=== PATIENT | female | born 1975 | race Caucasian/White ===

== ENCOUNTER 2016-12-04 08:12 | Outpatient (CLI) | payer OTHER | END 2016-12-04 08:13 | disposition home or self-care (01) | DX: Z12.31 Encounter for screening mammogram for malignant neoplasm of breast (principal) ==

== ENCOUNTER 2017-12-30 11:22 | Outpatient (CLI) | payer OTHER ==
--- NOTE | 2017-12-30 18:09 | Mammography Report ---
DIGITAL SCREENING MAMMOGRAM: 12/30/2017 HISTORY: Asymptomatic. Routine screening. TECHNIQUE: Bilateral digital CC and MLO projections are performed. COMPARISON: 12/04/2016 and 10/26/2015. FINDINGS: There are scattered fibroglandular densities. There is no dominant mass, architectural distortion, or skin thickening. Numerous bilateral axillary lymph nodes are present. Calcifications in the posterior left breast 7 o'clock position are likely in the skin. No definite interval change has occurred. IMPRESSION: NEGATIVE. BIRADS category: 1, negative. Suggest return to routine screening in 12 months. STANDARD QUALIFYING STATEMENTS 1. This examination was reviewed with the aid of Computed-Aided Detection (CAD) . 2. A negative or benign imaging report should not delay biopsy if clinically suspicious findings are present. Consider surgical consultation if warranted. More than 5 % of cancers are not identified by imaging. 3. Dense breasts may obscure an underlying neoplasm. TD: 12/30/2017 18:09 ZENA
== END 2017-12-30 11:23 | disposition home or self-care (01) ==
LOC: DI 11:22
PROVIDERS: ATTEND Physician Assistant Medical
DX: Z12.31 Encounter for screening mammogram for malignant neoplasm of breast (principal)
CPT/HCPCS: 77067

== ENCOUNTER 2018-05-08 08:45 | Outpatient (CLI) | payer OTHER ==
[2018-05-08 14:58] LABS: HB2 TOTAL 12.3 g/dL; HEMOGLOBIN A1C 0.58 g/dL; HEMOGLOBIN A1C % 6.5 % (4.6-6.2)
== END 2018-05-08 08:46 | disposition home or self-care (01) ==
LOC: LAB.R 08:45
PROVIDERS: ATTEND Physician Assistant Medical
DX: Z79.899 Other long term (current) drug therapy (principal); E11.9 Type 2 diabetes mellitus without complications
CPT/HCPCS: 82947; 83036

== ENCOUNTER 2018-10-20 07:29 | Outpatient (CLI) | payer BC, OTHER ==
[2018-10-20 12:39] LABS: BASOPHILS # (AUTO) 0.2 10^3/uL (0.0-0.1); BASOPHILS % (AUTO) 2.1 %; EOSINOPHILS # (AUTO) 0.5 10^3/uL (0.0-0.7); HGB - HEMOGLOBIN 11.8 g/dL (12.0-16.0); LYMPHOCYTES # (AUTO) 1.9 10^3/uL (1.5-3.5); LYMPHOCYTES % (AUTO) 25.1 %; MEAN CORPUSCULAR HEMOGLOBIN 24.6 pg (27.0-31.0); MEAN CORPUSCULAR HGB CONC 31.9 g/dL (32.0-36.0); MEAN CORPUSCULAR VOLUME 77.1 fL (81.0-99.0); MEAN PLATELET VOLUME 8.8 fL (7.9-10.8); MONOCYTES # (AUTO) 0.7 10^3/uL (0.0-1.0); MONOCYTES % (AUTO) 8.7 %; NEUTROPHILS # (AUTO) 4.5 10^3/uL (1.5-6.6); NEUTROPHILS % (AUTO) 58.1 %; PLT - PLATELET COUNT 292 10^3/uL (130-450); RED CELL DISTRIBUTION WIDTH 17.2 % (12.0-15.0); WHITE BLOOD COUNT 7.7 x10^3/uL (4.8-10.8)
[2018-10-20 13:10] LABS: HB2 TOTAL 12.8 g/dL; HEMOGLOBIN A1C 0.56 g/dL; HEMOGLOBIN A1C % 6.2 % (4.6-6.2)
[2018-10-20 13:19] LABS: ALBUMIN 4.3 g/dL (3.2-5.5); ALBUMIN/GLOBULIN RATIO 1.4 (1.0-2.2); ALKALINE PHOSPHATASE 48 IU/L (42-121); ALT ALANINE AMINOTRANSFERASE 17 IU/L (10-60); AST ASPARTATE AMINOTRANSFERASE 25 IU/L (10-42); BILIRUBIN,TOTAL 0.7 mg/dL (0.2-1.0); BUN - BLOOD UREA NITROGEN 16 mg/dL (6-20); CALCIUM 9.4 mg/dL (8.5-10.3); CARBON DIOXIDE - CO2 25 mmol/L (21-32); CHLORIDE 104 mmol/L (101-111); CHOL/HDL RATIO 2.2 (<4.4); CHOLESTEROL 159 mg/dL; CREATININE 0.7 mg/dL (0.4-1.0); GFR - MDRD 91 (>89); GLUCOSE 84 mg/dL (70-100); HDL CHOLESTEROL 71 mg/dL; LDL CHOLESTEROL,CALCULATED 72 mg/dL; SODIUM 138 mmol/L (135-145); TOTAL PROTEIN 7.4 g/dL (6.7-8.2); VLDL CHOLESTEROL 16 mg/dL
== END 2018-10-20 23:59 | disposition home or self-care (01) ==
LOC: LAB.WCP 07:29
PROVIDERS: ATTEND Physician Assistant
DX: I10 Essential (primary) hypertension (principal); E78.5 Hyperlipidemia, unspecified; E11.9 Type 2 diabetes mellitus without complications
CPT/HCPCS: 36415; 80053; 80061; 83036; 83721; 84443; 85025

== ENCOUNTER 2018-11-30 15:00 | Outpatient (CLI) | payer BC | END 2018-11-30 23:59 | disposition home or self-care (01) | LOC: LAB.R 15:00 | PROVIDERS: ATTEND Physician Assistant Medical | DX: R31.9 Hematuria, unspecified (principal) | CPT/HCPCS: 87086 ==

== ENCOUNTER 2018-12-07 13:47 | Outpatient (CLI) | payer BC ==
--- NOTE | 2018-12-08 00:46 | XRAY Report ---
Reason: DYSPNEA ON EXERTION Procedure Date: 12/07/2018 Accession Number: [id number] / [id number] Procedure: WCP - Chest 2 View X-Ray CPT Code: 00490 FULL RESULT: EXAM: CHEST RADIOGRAPHY EXAM DATE: 12/07/2018 02:03 PM. CLINICAL HISTORY: DYSPNEA ON EXERTION. COMPARISON: None. TECHNIQUE: 2 views. FINDINGS: Lungs/Pleura: No focal opacities evident. No pleural effusion. No pneumothorax. Normal volumes. Mediastinum: Heart and mediastinal contours are unremarkable. Other: None. IMPRESSION: Normal 2-view chest radiography. RADIA
== END 2018-12-07 13:48 | disposition home or self-care (01) ==
LOC: DI.WCP 13:47
PROVIDERS: ATTEND Physician Assistant Medical
DX: R06.00 Dyspnea, unspecified (principal)
CPT/HCPCS: 71046

== ENCOUNTER 2018-12-07 16:39 | Outpatient (CLI) | payer BC ==
[2018-12-07] MEDS ORDERED: IOPAMIDOL-300 100 ML VIAL ONE (17:14)
[2018-12-07] MEDS ORDERED: IOVERSOL 320 50 ML VIAL ONE (17:14)
[2018-12-07] MEDS ORDERED: IOPAMIDOL-300 100 ML VIAL IVP ONE (18:19)
[2018-12-07] MEDS ORDERED: IOVERSOL 320 50 ML VIAL PO ONE (18:19)
--- NOTE | 2018-12-07 18:57 | CT Report ---
Reason: ABDOMINAL PAIN,ACUTE Procedure Date: 12/07/2018 Accession Number: [id number] / [id number] Procedure: CT - Abdomen/Pelvis W CPT Code: FULL RESULT: EXAM: CT ABDOMEN AND PELVIS EXAM DATE: 12/07/2018 06:15 PM. CLINICAL HISTORY: ABDOMINAL Pain, acute. COMPARISONS: ABDOMEN W/WO 05/09/2015 1:54 PM. TECHNIQUE: Routine helical CT imaging was performed through the abdomen and pelvis. IV contrast: ISOVUE 300 100mL. Enteric contrast: Positive. Reconstructions: Coronal and sagittal. In accordance with CT protocol optimization, one or more of the following dose reduction techniques were utilized for this exam: automated exposure control, adjustment of mA and/or KV based on patient size, or use of iterative reconstructive technique. FINDINGS: Lung Bases: Unremarkable. Liver: Normal. No masses. Gallbladder/Bile Ducts: There is cholelithiasis. Spleen: Normal. Pancreas: Normal. Adrenal Glands: Normal. Kidneys: There is left renal scarring. No acute renal abnormalities are seen. Peritoneal Cavity/Bowel: Normal. No free fluid, free air or adenopathy. No masses or acute inflammatory process. The appendix is not seen. Pelvic Organs: There is suggestion of inferior positioning of the rectum and lower uterine segment. No significant adnexal abnormalities are seen. The urinary bladder is unremarkable. Vasculature: No aneurysms or other significant abnormality. Bones: No significant abnormality. Other: There is a small fat-containing periumbilical hernia without evidence of associated inflammation. IMPRESSION: 1. No acute solid or hollow viscus organ abnormalities are seen. No evidence of bowel obstruction or mesenteric inflammation. 2. There is cholelithiasis. No evidence of cholecystitis or bile duct dilatation. 3. Questionable relative caudal positioning of the lower uterine segment which could be seen with pelvic prolapse. Clinical correlation recommended. 4. There is a small fat-containing periumbilical hernia without evidence of associated inflammation. RADIA The call report notification system was initiated by Dr. Anoop Yeh at 06:55 PM on 12/07/2018.
== END 2018-12-07 16:40 | disposition home or self-care (01) ==
LOC: DI 16:39
PROVIDERS: ATTEND Physician Assistant
DX: K80.20 Calculus of gallbladder without cholecystitis without obstruction (principal); K42.9 Umbilical hernia without obstruction or gangrene; R06.00 Dyspnea, unspecified; R68.89 Other general symptoms and signs; R10.9 Unspecified abdominal pain
CPT/HCPCS: 36415; 71046; 74177; 80053; 83540; 83690; 84466; 85025; Q9967

== ENCOUNTER 2018-12-07 16:49 | Outpatient (CLI) | payer BC ==
[2018-12-07 17:00] LABS: BASOPHILS # (AUTO) 0.2 10^3/uL (0.0-0.1); BASOPHILS % (AUTO) 2.3 %; EOSINOPHILS # (AUTO) 0.3 10^3/uL (0.0-0.7); EOSINOPHILS % (AUTO) 3.2 %; HGB - HEMOGLOBIN 11.7 g/dL (12.0-16.0); LYMPHOCYTES # (AUTO) 2.8 10^3/uL (1.5-3.5); LYMPHOCYTES % (AUTO) 26.7 %; MEAN CORPUSCULAR HEMOGLOBIN 24.3 pg (27.0-31.0); MEAN CORPUSCULAR HGB CONC 31.4 g/dL (32.0-36.0); MEAN CORPUSCULAR VOLUME 77.3 fL (81.0-99.0); MEAN PLATELET VOLUME 7.6 fL (7.9-10.8); MONOCYTES # (AUTO) 0.9 10^3/uL (0.0-1.0); MONOCYTES % (AUTO) 8.5 %; NEUTROPHILS # (AUTO) 6.2 10^3/uL (1.5-6.6); NEUTROPHILS % (AUTO) 59.3 %; PLT - PLATELET COUNT 316 10^3/uL (130-450); RED CELL DISTRIBUTION WIDTH 18.1 % (12.0-15.0); WHITE BLOOD COUNT 10.4 x10^3/uL (4.8-10.8)
[2018-12-07 17:29] LABS: ALBUMIN 4.4 g/dL (3.2-5.5); ALBUMIN/GLOBULIN RATIO 1.3 (1.0-2.2); BILIRUBIN,TOTAL 0.5 mg/dL (0.2-1.0); CALCIUM 9.5 mg/dL (8.5-10.3); CREATININE 0.7 mg/dL (0.4-1.0); TOTAL PROTEIN 7.8 g/dL (6.7-8.2)
[2018-12-08 08:24] LABS: % IRON SATURATION 3 % (20-50); IRON 15 ug/dL (28-170); TOTAL IRON BINDING CAPACITY 434 ug/dL (250-450); TRANSFERRIN 310 mg/dL (192-382)
== END 2018-12-07 16:50 | disposition home or self-care (01) ==
LOC: LAB 16:49
PROVIDERS: ATTEND Physician Assistant
DX: R10.9 Unspecified abdominal pain (principal); R68.89 Other general symptoms and signs
CPT/HCPCS: 36415; 80053; 83540; 83690; 84466; 85025

== ENCOUNTER 2019-02-18 11:27 | Emergency (ER) | payer BC ==
--- NOTE | 2019-02-18 12:04 | ED Physician Documentation ---
History of Present Illness - Stated complaint Stated Complaint: GLF/BACK - Chief complaint Chief Complaint: General - History obtained from History obtained from: Patient - History of Present Illness Timing: Other (4 days ago she was horse playing with her son and her legs came out from under her and she landed on her low back and has continued moderate pain there. On the way here pain radiated down into the right thigh but that is not persistent. There is no weakness, numbness, tingling, saddle anesthesia, fever, or incontinence. No history of back problems. No other injuries. 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 HEENT: Tonsil/Adenoidectomy - Present Medications Home Medications: Ambulatory Orders Medication Instructions Recorded Confirmed Lisinopril 20 mg PO DAILY 01/29/16 12/04/16 metFORMIN [Glucophage] 500 mg PO BIDWM 01/29/16 12/04/16 Acetaminophen [Tylenol] 325 mg PO QPM PRN 12/04/16 12/04/16 Bacillus Coagulans [Probiotic] 1 each PO Q2D 12/04/16 12/04/16 Citrucel 1 tab PO DAILY 12/04/16 12/04/16 Dicyclomine HCl 20 mg PO DAILY 12/04/16 12/04/16 Docusate Sodium 100 mg PO DAILY 12/04/16 12/04/16 Duloxetine HCl [Cymbalta] 60 mg PO DAILY 12/04/16 12/04/16 Famotidine 20 mg PO DAILY 12/04/16 12/04/16 Glimepiride 3 mg PO DAILY 12/04/16 12/04/16 Loratadine [Allergy Relief] 10 mg PO DAILY 12/04/16 12/04/16 Multivitamin [Multivitamins] 1 each PO DAILY 12/04/16 12/04/16 Phenylephrine HCl [Sudafed PE] 10 mg PO DAILY 12/04/16 12/04/16 Turmeric/Turmeric Root Extract 500 mg PO DAILY 12/04/16 12/04/16 [Turmeric] Insulin NPH Human Isophane 26 unit SQ QPM 02/19/17 02/19/17 [Humulin N] Acetaminophen/Cod 300/30 [Tylenol 1 each PO Q4-6H PRN #15 tablet 02/18/19 #3] - Allergies Allergies/Adverse Reactions: Allergies Allergy/AdvReac Type Severity Reaction Status Date / Time No Known Drug Allergies Allergy Verified 02/18/19 11:34 - Social History Does the pt smoke?: No Smoking Status: Never smoker Does the pt drink ETOH?: No Does the pt have substance abuse?: No - Immunizations Immunizations are current?: Yes PD ED PE NORMAL - Vitals Vital signs reviewed: Yes - General General: Alert and oriented X 3, No acute distress - Abdomen Abdomen: Soft, Non tender - Back Back: Other (Mild tenderness to the low lumbar spine and upper sacrum. The patient has equal and normal Achilles and patellar reflexes bilaterally. Normal sensation in all areas of the legs. Patient denies saddle anesthesia. Normal strength in flexion-extension at the ankles, knees, and flexion of the hips.) - Derm Derm: Normal color, Warm and dry - Extremities Extremities: No edema, No calf tenderness / cord Results - Vitals Vitals: Vital Signs - 24 hr 02/18/19 11:28 Temperature 36.5 C Heart Rate 92 Respiratory 14 Rate Blood Pressure 160/101 H O2 Saturation 100 Oxygen O2 Source Room air - Rads (name of study) LS and Sacrum Xray Radiology: EMP read contemporaneously (Potential right L2 transverse process fracture without other acute abnormality, note she was reexamined Specifically there after the x-ray and has no tenderness to L2 or the right side of L2.) Departure - Departure Disposition: 01 Home, Self Care Clinical Impression: Back contusion Qualifiers: Encounter type: initial encounter Laterality: unspecified laterality Qualified Code(s): S20.229A - Contusion of unspecified back wall of thorax, initial encounter Condition: Good Record reviewed to determine appropriate education?: Yes Instructions: ED Low Back Pain Injury Prescriptions: Acetaminophen/Cod 300/30 [Tylenol #3] 1 each PO Q4-6H PRN #15 tablet PRN Reason: Pain Comments: Recheck with your doctor in a week if not improving, return for new or worsening symptoms. Do not drink or drive while taking narcotic pain medication. Note that many narcotic pain relievers also contain Tylenol/acetaminophen. Please ensure that your total dose of acetaminophen from all sources does not exceed 3 g (3000 mg) per day. You may get constipated while on this medication. Take a stool softener such as Colace twice a day while you are on it. Also add an otpj-kvu-aimbcbd laxative such as senna or MiraLAX on any day that you do not have a bowel movement. If you received a narcotic pain medication or sedative while in the emergency department, do not drive for the next 24 hours. Your blood pressure was elevated today on check into the emergency department. This does not mean that you have hypertension, it is a common phenomenon to come to the emergency department and have elevated blood pressure. I recommend that you see your primary care physician within the week to have it rechecked when you are feeling better.
--- NOTE | 2019-02-18 12:49 | XRAY Report ---
Reason: back inj Procedure Date: 02/18/2019 Accession Number: [id number] / [id number] Procedure: XR - Lumbar Spine 2 View CPT Code: FULL RESULT: EXAM: LUMBOSACRAL SPINE RADIOGRAPHY EXAM DATE: 02/18/2019 12:35 PM. CLINICAL HISTORY: Fall 5 days ago with low back pain and sacral pain. COMPARISONS: None. TECHNIQUE: 3 views. FINDINGS: Alignment: Normal. No spondylolisthesis or scoliosis. Bones: Five jih-jyq-gdqnsae lumbar vertebral bodies are present. There is well-corticated disruption of the right L2 transverse process, possibly congenital. Otherwise no fracture is detected. Disks: Normal. Disk heights are maintained. Facets: No degenerative changes. Sacroiliac Joints: Unremarkable. Soft Tissues: Normal. The visualized bowel gas pattern is normal. IMPRESSION: No definite acute fracture or listhesis is detected. Correlate cortical disruption of the right L2 transverse process to focal tenderness to exclude fracture. [facility]
--- NOTE | 2019-02-18 12:53 | XRAY Report ---
Reason: back inj Procedure Date: 02/18/2019 Accession Number: [id number] / [id number] Procedure: XR - Sacrum/Coccyx CPT Code: FULL RESULT: EXAM: SACRUM AND COCCYX RADIOGRAPHY EXAM DATE: 02/18/2019 12:35 PM. HISTORY: Back injury. COMPARISONS: None. TECHNIQUE: 2 views. FINDINGS: Evaluation of the coccyx on AP view is limited by bowel gas. Alignment: Alignment of the distal coccyx on lateral radiograph appears unusual, possible 3 mm subluxation of the distal coccygeal segment. Bones: No definite fracture is detected. Joints: Normal. The sacroiliac joints and visualized hips are within normal limits. Soft Tissues: Unremarkable. IMPRESSION: Limited visualization of the coccyx on the AP view, potential subluxation without visualized fracture of the distal most portion of the coccyx as described above. RADIA
[2019-02-18 13:25] VITALS: BP 148/94
== END 2019-02-18 13:24 | disposition home or self-care (01) ==
LOC: ED 11:27
DX: S30.0XXA Contusion of lower back and pelvis, initial encounter (principal); W18.39XA Other fall on same level, initial encounter; Y93.83 Activity, rough housing and horseplay; I10 Essential (primary) hypertension; E11.9 Type 2 diabetes mellitus without complications; Z79.4 Long term (current) use of insulin
CPT/HCPCS: 72100; 72220; 99283

== ENCOUNTER 2019-07-06 10:51 | Outpatient (CLI) | payer BC ==
--- NOTE | 2019-07-06 16:31 | Mammography Report ---
Reason: SCREENING MAMMO Procedure Date: 07/06/2019 Accession Number: [id number] / [id number] Procedure: [facility]AN - Screening Mammo w/Wilmer CPT Code: FULL RESULT: EXAM: Screening Mammo w/Wilmer DATE: 07/06/2019 11:47 AM CLINICAL HISTORY: Routine screening. No reported personal or family history of breast cancer. TECHNIQUE: (B) - Bilateral CC and MLO views were obtained. COMPARISON: 12/30/2017 through 10/26/2015 PARENCHYMAL PATTERN: (A) - The breasts demonstrate scattered fibroglandular densities bilaterally. FINDINGS: Bilateral breasts: There are no suspicious masses, calcifications, or areas of distortion. IMPRESSION: Negative examination. BI-RADS category 1. RECOMMENDATION: (ANNUAL) - Recommend routine annual screening mammography. BI-RADS CATEGORY: (1) - Negative. STANDARD QUALIFYING STATEMENTS: 1. This examination was not reviewed with the aid of Computer-Aided Detection (CAD). 2. A negative or benign imaging report should not preclude biopsy if clinically suspicious findings are present. 3. Dense breasts may obscure an underlying neoplasm. 4. This examination was reviewed with the aid of 3D breast imaging (tomosynthesis).
== END 2019-07-06 10:52 | disposition home or self-care (01) ==
LOC: DI 10:51
DX: Z12.31 Encounter for screening mammogram for malignant neoplasm of breast (principal)
CPT/HCPCS: 77063; 77067

== ENCOUNTER 2019-07-09 07:25 | Outpatient (CLI) | payer BC ==
[2019-07-09 13:09] LABS: HB2 TOTAL 13.5 g/dL; HEMOGLOBIN A1C 0.54 g/dL; HEMOGLOBIN A1C % 5.8 % (4.6-6.2)
== END 2019-07-09 07:26 | disposition home or self-care (01) ==
LOC: LAB.WCP 07:25
PROVIDERS: ATTEND Physician Assistant
DX: E11.9 Type 2 diabetes mellitus without complications (principal); I10 Essential (primary) hypertension; E78.5 Hyperlipidemia, unspecified; E66.3 Overweight; F32.9 Major depressive disorder, single episode, unspecified
CPT/HCPCS: 36415; 80053; 83036

== ENCOUNTER 2019-07-12 07:22 | Outpatient (CLI) | payer BC ==
[2019-07-12 13:18] LABS: ALBUMIN 4.2 g/dL (3.2-5.5); ALBUMIN/GLOBULIN RATIO 1.3 (1.0-2.2); BILIRUBIN,TOTAL 0.6 mg/dL (0.2-1.0); CALCIUM 9.5 mg/dL (8.5-10.3); CREATININE 0.8 mg/dL (0.4-1.0); TOTAL PROTEIN 7.4 g/dL (6.7-8.2)
== END 2019-07-15 23:59 | disposition home or self-care (01) ==
LOC: LAB.WCP 07:22
PROVIDERS: ATTEND Physician Assistant
DX: I10 Essential (primary) hypertension (principal); E11.9 Type 2 diabetes mellitus without complications; E78.5 Hyperlipidemia, unspecified; E66.3 Overweight; F32.9 Major depressive disorder, single episode, unspecified
CPT/HCPCS: 36415; 80053

== ENCOUNTER 2019-10-07 07:21 | Outpatient (CLI) | payer BC ==
[2019-10-07 12:47] LABS: HB2 TOTAL 12.9 g/dL; HEMOGLOBIN A1C 0.66 g/dL; HEMOGLOBIN A1C % 6.8 % (4.6-6.2)
[2019-10-07 12:51] LABS: CALCIUM 9.2 mg/dL (8.5-10.3); CREATININE 0.8 mg/dL (0.4-1.0)
== END 2019-10-07 23:59 | disposition home or self-care (01) ==
LOC: LAB.WCP 07:21
PROVIDERS: ATTEND Physician Assistant
DX: E11.9 Type 2 diabetes mellitus without complications (principal)
CPT/HCPCS: 36415; 80048; 83036

== ENCOUNTER 2020-07-31 08:00 | Outpatient (CLI) | payer BC ==
[2020-07-31 11:59] LABS: BASOPHILS # (AUTO) 0.1 10^3/uL (0.0-0.1); BASOPHILS % (AUTO) 1.8 %; EOSINOPHILS # (AUTO) 0.6 10^3/uL (0.0-0.7); EOSINOPHILS % (AUTO) 8.4 %; HGB - HEMOGLOBIN 12.7 g/dL (12.0-16.0); LYMPHOCYTES # (AUTO) 1.9 10^3/uL (1.5-3.5); LYMPHOCYTES % (AUTO) 29.1 %; MEAN CORPUSCULAR HEMOGLOBIN 28.3 pg (27.0-31.0); MEAN CORPUSCULAR HGB CONC 31.2 g/dL (32.0-36.0); MEAN CORPUSCULAR VOLUME 90.6 fL (81.0-99.0); MEAN PLATELET VOLUME 10.8 fL (7.9-10.8); MONOCYTES # (AUTO) 0.6 10^3/uL (0.0-1.0); MONOCYTES % (AUTO) 8.6 %; NEUTROPHILS # (AUTO) 3.4 10^3/uL (1.5-6.6); NEUTROPHILS % (AUTO) 51.8 %; PLT - PLATELET COUNT 284 10^3/uL (130-450); RED BLOOD COUNT 4.49 10^6/uL (4.20-5.40); WHITE BLOOD COUNT 6.5 x10^3/uL (4.8-10.8)
[2020-07-31 12:34] LABS: ALBUMIN 3.8 g/dL (3.2-5.5); ALBUMIN/GLOBULIN RATIO 1.4 (1.0-2.2); ALKALINE PHOSPHATASE 36 IU/L (42-121); ALT ALANINE AMINOTRANSFERASE 19 IU/L (10-60); AST ASPARTATE AMINOTRANSFERASE 19 IU/L (10-42); BILIRUBIN,TOTAL 0.5 mg/dL (0.2-1.0); BUN - BLOOD UREA NITROGEN 10 mg/dL (6-20); CARBON DIOXIDE - CO2 28 mmol/L (21-32); CHLORIDE 102 mmol/L (101-111); CHOL/HDL RATIO 2.4 (<4.4); CHOLESTEROL 139 mg/dL; CREATININE 0.7 mg/dL (0.4-1.0); GLUCOSE 95 mg/dL (70-100); HDL CHOLESTEROL 59 mg/dL; LDL CHOLESTEROL,CALCULATED 62 mg/dL; LDL/HDL RATIO 1.1 (<4.4); SODIUM 139 mmol/L (135-145); TOTAL PROTEIN 6.5 g/dL (6.7-8.2); VLDL CHOLESTEROL 18 mg/dL
[2020-07-31 12:56] LABS: HEMOGLOBIN A1c% 6.2 % (4.27-6.07)
== END 2020-07-31 23:59 | disposition home or self-care (01) ==
LOC: LAB.WCP 08:00
PROVIDERS: ATTEND Physician Assistant
DX: E11.9 Type 2 diabetes mellitus without complications (principal); E78.5 Hyperlipidemia, unspecified
CPT/HCPCS: 36415; 80053; 80061; 83036; 83721; 85025

== ENCOUNTER 2020-12-20 07:28 | Outpatient (CLI) | payer BC ==
[2020-12-20 12:37] LABS: CALCIUM 9.3 mg/dL (8.5-10.3); CREATININE 0.8 mg/dL (0.4-1.0); POTASSIUM 3.8 mmol/L (3.5-5.0)
[2020-12-20 12:51] LABS: ESTIMATED AVERAGE GLUCOSE 143 mg/dL (70-100); HEMOGLOBIN A1c% 6.6 % (4.27-6.07)
[2020-12-20 12:59] LABS: THYROID STIMULATING HORMONE 1.32 uIU/mL (0.34-5.60)
[2020-12-20 13:36] LABS: CREATININE,URINE 101.2 mg/dL; MICROALBUM/CREATININE RATIO,UR 10.9 ug/mg (<30.0); MICROALBUMIN,URINE 1.1 mg/dL (0-300.0)
== END 2020-12-20 23:59 | disposition home or self-care (01) ==
LOC: LAB.WCP 07:28
PROVIDERS: ATTEND Physician Assistant Medical
DX: E11.9 Type 2 diabetes mellitus without complications (principal)
CPT/HCPCS: 36415; 80048; 82043; 82570; 83036; 84443

== ENCOUNTER 2021-01-29 12:44 | Outpatient (CLI) | payer BC ==
--- NOTE | 2021-01-30 13:18 | Mammography Report ---
BILATERAL DIGITAL SCREENING MAMMOGRAM 3D/2D: 01/29/2021 CLINICAL: Routine screening. Comparison is made to exams dated: 07/06/2019 mammogram, 12/30/2017 mammogram, 12/04/2016 mammogram, and 10/26/2015 mammogram - [facility]. The tissue of both breasts is heterogeneously de nse. This may lower the sensitivity of mammography. No significant masses, calcifications, or other findings are seen in either breast. There has been no significant interval change. IMPRESSION: NEGATIVE There is no mammographic evidence of malignancy. A 1 year screening mammogram is recommended. This exam was interpreted at Station ID: [id number]. NOTE: For mammograms, a report in lay terms will be sent to the patient. Approximately 15% of breast malignancies will not be visualized mammographically. In the management of a palpable breast mass, a negative mammogram must not discourage biopsy of a clinically suspicious lesion. Electronically Signed By: Chris Cartagena M.D., jr/flor:01/29/2021 13:24:51 ACR BI-RADS Category 1: Negative 3341F PARENCHYMAL PATTERN: (D) - The breast(s) demonstrate(s) heterogeneously dense fibroglandular parhaoy ma. BI-RADS CATEGORY: (1) - 1 RECOMMENDATION: (ANNUAL) - Recommend routine annual screening mammography. [id number] 1 year screening LATERALITY: (B)
== END 2021-01-29 12:45 | disposition home or self-care (01) ==
LOC: DI.N 12:44
DX: Z12.31 Encounter for screening mammogram for malignant neoplasm of breast (principal)

== ENCOUNTER 2021-03-19 08:00 | Outpatient (CLI) | payer BC ==
[2021-03-19 11:51] LABS: BASOPHILS # (AUTO) 0.2 10^3/uL (0.0-0.1); BASOPHILS % (AUTO) 1.7 %; EOSINOPHILS # (AUTO) 0.6 10^3/uL (0.0-0.7); EOSINOPHILS % (AUTO) 7.2 %; HCT - HEMATOCRIT 39.4 % (37.0-47.0); HGB - HEMOGLOBIN 12.1 g/dL (12.0-16.0); LYMPHOCYTES # (AUTO) 2.2 10^3/uL (1.5-3.5); LYMPHOCYTES % (AUTO) 25.5 %; MEAN CORPUSCULAR HEMOGLOBIN 27.3 pg (27.0-31.0); MEAN CORPUSCULAR HGB CONC 30.7 g/dL (32.0-36.0); MEAN CORPUSCULAR VOLUME 88.9 fL (81.0-99.0); MEAN PLATELET VOLUME 10.7 fL (7.9-10.8); MONOCYTES # (AUTO) 0.8 10^3/uL (0.0-1.0); MONOCYTES % (AUTO) 9.3 %; NEUTROPHILS # (AUTO) 4.9 10^3/uL (1.5-6.6); NEUTROPHILS % (AUTO) 56.1 %; PLT - PLATELET COUNT 332 10^3/uL (130-450); RED BLOOD COUNT 4.43 10^6/uL (4.20-5.40); RED CELL DISTRIBUTION WIDTH 14.6 % (12.0-15.0); WHITE BLOOD COUNT 8.8 x10^3/uL (4.8-10.8)
[2021-03-19 12:08] LABS: ALBUMIN 4.3 g/dL (3.2-5.5); ALBUMIN/GLOBULIN RATIO 1.5 (1.0-2.2); ALKALINE PHOSPHATASE 45 IU/L (42-121); ALT ALANINE AMINOTRANSFERASE 18 IU/L (10-60); AST ASPARTATE AMINOTRANSFERASE 22 IU/L (10-42); BILIRUBIN,TOTAL 0.4 mg/dL (0.2-1.0); BUN - BLOOD UREA NITROGEN 12 mg/dL (6-20); CALCIUM 9.4 mg/dL (8.5-10.3); CARBON DIOXIDE - CO2 26 mmol/L (21-32); CHLORIDE 100 mmol/L (101-111); CHOL/HDL RATIO 2.2 (<4.4); CHOLESTEROL 168 mg/dL; CREATININE 0.8 mg/dL (0.4-1.0); GFR - MDRD 77 (>89); GLUCOSE 121 mg/dL (70-100); HDL CHOLESTEROL 75 mg/dL; LDL CHOLESTEROL,CALCULATED 78 mg/dL; POTASSIUM 4.3 mmol/L (3.5-5.0); SODIUM 137 mmol/L (135-145); TOTAL PROTEIN 7.2 g/dL (6.7-8.2); TRIGLYCERIDES 74 mg/dL; VLDL CHOLESTEROL 15 mg/dL
[2021-03-19 12:17] LABS: ESTIMATED AVERAGE GLUCOSE 148 mg/dL (70-100); HEMOGLOBIN A1c% 6.8 % (4.27-6.07)
== END 2021-03-19 23:59 | disposition home or self-care (01) ==
LOC: LAB.WCP 08:00
PROVIDERS: ATTEND Physician Assistant Medical
DX: E11.9 Type 2 diabetes mellitus without complications (principal); K21.9 Gastro-esophageal reflux disease without esophagitis
CPT/HCPCS: 36415; 80053; 80061; 83036; 83721; 85025

== ENCOUNTER 2021-04-02 08:38 | Emergency (ER) | payer BC ==
[2021-04-02 09:31] LABS: HCG UR QUAL NEGATIVE
[2021-04-02 09:38] LABS: CLARITY,URINE CLOUDY (CLEAR)
[2021-04-02 09:40] LABS: BILIRUBIN,URINE COLOR INTERFERENCE (NEGATIVE)
[2021-04-02 09:44] LABS: BACTERIA,URINE Rare /HPF (None Seen); RBC,URINE TNTC /HPF (0-5); SQUAMOUS EPITHELIAL CELL,UR FEW Squamous (<= Few)
--- NOTE | 2021-04-02 10:02 | ED Physician Documentation ---
History of Present Illness - Stated complaint Stated Complaint: FEMALE - Chief complaint Chief Complaint: UTI - Additonal information Additional information: 45-year-old woman with history of UTI presents with dysuria, increased frequency , and suprapubic pain progressive for the gradually worsening over the past 3 days, constant, nonradiating, worse with urination. Denies fever. 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 HEENT: Tonsil/Adenoidectomy - Present Medications Home Medications: Ambulatory Orders Medication Instructions Recorded Confirmed lisinopriL [Lisinopril] 20 mg PO DAILY 01/29/16 12/04/16 metFORMIN [Glucophage] 500 mg PO BIDWM 01/29/16 12/04/16 Acetaminophen [Tylenol] 325 mg PO QPM PRN 12/04/16 12/04/16 Bacillus Coagulans [Probiotic] 1 each PO Q2D 12/04/16 12/04/16 Citrucel 1 tab PO DAILY 12/04/16 12/04/16 Dicyclomine HCl 20 mg PO DAILY 12/04/16 12/04/16 Docusate Sodium 100 mg PO DAILY 12/04/16 12/04/16 Duloxetine HCl [Cymbalta] 60 mg PO DAILY 12/04/16 12/04/16 Famotidine 20 mg PO DAILY 12/04/16 12/04/16 Glimepiride 3 mg PO DAILY 12/04/16 12/04/16 Loratadine [Allergy Relief] 10 mg PO DAILY 12/04/16 12/04/16 Multivitamin [Multivitamins] 1 each PO DAILY 12/04/16 12/04/16 Phenylephrine HCl [Sudafed PE] 10 mg PO DAILY 12/04/16 12/04/16 Turmeric/Turmeric Root Extract 500 mg PO DAILY 12/04/16 12/04/16 [Turmeric] Insulin NPH Human Isophane 26 unit SQ QPM 02/19/17 02/19/17 [Humulin N] Acetaminophen/Cod 300/30 [Tylenol 1 each PO Q4-6H PRN #15 tablet 02/18/19 #3] Nitrofurantoin [Macrobid] 100 mg PO BID #10 tab 04/02/21 - Allergies Allergies/Adverse Reactions: Allergies Allergy/AdvReac Type Severity Reaction Status Date / Time No Known Drug Allergies Allergy Verified 04/02/21 08:56 - Social History Does the pt smoke?: No Smoking Status: Never smoker Does the pt drink ETOH?: No Does the pt have substance abuse?: No - Immunizations Immunizations are current?: Yes PD ED PE NORMAL - Vitals Vital signs reviewed: Yes - General General: Alert and oriented X 3, No acute distress, Well developed/nourished - HEENT HEENT: Atraumatic, PERRL, EOMI - Neck Neck: Supple, no meningeal sign - Abdomen Abdomen: Non tender, Non distended, Other (Discomfort to suprapubic palpation) - Back Back: No CVA TTP - Derm Derm: Normal color Results - Vitals Vitals: Vital Signs - 24 hr 04/02/21 04/02/21 08:54 09:52 Temperature 36.4 C L Heart Rate 85 73 Respiratory 16 14 Rate Blood Pressure 150/99 H 133/102 H O2 Saturation 100 100 Oxygen O2 Source Room air - Labs Labs: Laboratory Tests 04/02/21 04/02/21 09:00 09:00 Urine Color ORANGE Urine Clarity CLOUDY Urine pH Ur Specific [place] Urine Protein Urine Glucose (UA) Urine Ketones Urine Occult Blood Urine Nitrite Urine Bilirubin COLOR INTERFERENCE Urine Urobilinogen Ur Leukocyte Esterase Urine RBC TNTC H Urine WBC 11-25 H Ur Squamous Epith Cells FEW Squamous Urine Bacteria Rare Ur Microscopic Review INDICATED Urine Culture Comments NOT INDICATED Urine HCG, Qual NEGATIVE PD MEDICAL DECISION MAKING - ED course ED course: 45-year-old woman presenting with urinary symptoms. She took Azo which occluded the urinalysis. We will treat symptomatically. Impression 1 UTI Departure - Departure Disposition: 01 Home, Self Care Condition: Good Instructions: UTI Prescriptions: Nitrofurantoin [Macrobid] 100 mg PO BID #10 tab Comments: You were seen in the emergency department for possible urinary tract infection. I am going to prescribe you antibiotics and we are sending a urine culture. We will call you if we need to adjust your medications. Please return to the emergency department if you have any new or worsening symptoms or other concerns. Follow-up with your primary doctor and with your CERTIFIED OPTICIAN.
[2021-04-02 10:17] VITALS: BP 128/88
== END 2021-04-02 10:16 | disposition home or self-care (01) ==
LOC: ED 08:38
DX: N39.0 Urinary tract infection, site not specified (principal)
CPT/HCPCS: 81001; 81003; 81025; 87086; 99283

== ENCOUNTER 2021-04-04 08:00 | Outpatient (CLI) | payer BC | END 2021-04-04 23:59 | disposition home or self-care (01) | LOC: LAB.R 08:00 | PROVIDERS: ATTEND Physician Assistant Medical | DX: R10.32 Left lower quadrant pain (principal) | CPT/HCPCS: 87086 ==

== ENCOUNTER 2021-04-05 10:47 | Outpatient (CLI) | payer BC ==
[2021-04-05] MEDS ORDERED: IOVERSOL 320 100 ML VIAL IVP ONE ×2 (11:00→17:31)
[2021-04-05] MEDS ORDERED: IOVERSOL 320 50 ML VIAL ONE (11:00)
[2021-04-05 11:28] LABS: ALBUMIN 4.4 g/dL (3.2-5.5); ALBUMIN/GLOBULIN RATIO 1.6 (1.0-2.2); BILIRUBIN,TOTAL 0.9 mg/dL (0.2-1.0); CALCIUM 9.3 mg/dL (8.5-10.3); CREATININE 0.6 mg/dL (0.4-1.0); POTASSIUM 3.9 mmol/L (3.5-5.0); TOTAL PROTEIN 7.1 g/dL (6.7-8.2)
--- NOTE | 2021-04-05 12:44 | CT Report ---
PROCEDURE: Abdomen/Pelvis W INDICATIONS: LEFT LOWER QUAD ABD PAIN CONTRAST: IV CONTRAST: Optiray 320 ml: 100 PO CONTRAST: Optiray 320 ml50 TECHNIQUE: After the administration of oral and intravenous contrast, 5 mm thick sections acquired from the diap hragms to the symphysis. 5 mm thick coronal and sagittal reformats were acquired. For radiation dos e reduction, the following was used: automated exposure control, adjustment of mA and/or kV accordin g to patient size. COMPARISON: CT abdomen pelvis 12/07/2018 FINDINGS: Image quality: Excellent. ABDOMEN: Lung bases: Lung bases are clear. Heart size is normal. Solid organs: Liver and spleen are normal in size and enhancement. Gallbladder is unremarkable. Bi liary system is non dilated. Pancreas enhances normally. No adrenal nodules. Kidneys demonstrate n ormal size and enhancement, without hydronephrosis. 1.1 cm 1 superior left renal pole calcification, Hounsfield units 978. Peritoneum and bowel: Bowel loops are nonobstructive. There is a very subtle appearance of hepatic w ithin the distal descending colon in the left lower quadrant. No free fluid or air. Nodes and vessels: No retroperitoneal or mesenteric adenopathy by size criteria. Aorta and inferior vena cava are normal in size. Miscellaneous: Fat containing umbilical hernia is present, with rectus diastasis measuring 1.9cm. PELVIS: Genitourinary: Bladder wall thickness is normal. Miscellaneous: No inguinal hernias or adenopathy. Bones: No suspicious bony lesions. No vertebral body compression fractures. IMPRESSION: 1. Very minimal appearance of thickening within a focal loop of descending colon. Very early colitis secondary to diverticulitis cannot be excluded. Reviewed by: Saray Abraham MD on 04/05/2021 12:43 PM PDT Approved by: Saray Abraham MD on 04/05/2021 12:43 PM PDT Station ID: [id number]
[2021-04-05] MEDS ORDERED: IOVERSOL 320 50 ML VIAL PO ONE (17:32)
== END 2021-04-05 10:48 | disposition home or self-care (01) ==
LOC: DI 10:47
PROVIDERS: ATTEND Physician Assistant Medical
DX: R10.32 Left lower quadrant pain (principal)
CPT/HCPCS: 36415; 74177; 80053; Q9967

== ENCOUNTER 2021-09-10 07:12 | Outpatient (CLI) | payer BC ==
[2021-09-10 12:23] LABS: BASOPHILS # (AUTO) 0.2 10^3/uL (0.0-0.1); BASOPHILS % (AUTO) 3.2 %; EOSINOPHILS # (AUTO) 0.6 10^3/uL (0.0-0.7); EOSINOPHILS % (AUTO) 8.6 %; HCT - HEMATOCRIT 34.3 % (37.0-47.0); HGB - HEMOGLOBIN 10.1 g/dL (12.0-16.0); LYMPHOCYTES # (AUTO) 1.6 10^3/uL (1.5-3.5); MEAN CORPUSCULAR HEMOGLOBIN 23.7 pg (27.0-31.0); MEAN CORPUSCULAR HGB CONC 29.4 g/dL (32.0-36.0); MEAN CORPUSCULAR VOLUME 80.3 fL (81.0-99.0); MEAN PLATELET VOLUME 10.7 fL (7.9-10.8); MONOCYTES # (AUTO) 0.6 10^3/uL (0.0-1.0); NEUTROPHILS % (AUTO) 56.1 %; PLT - PLATELET COUNT 338 10^3/uL (130-450); RED BLOOD COUNT 4.27 10^6/uL (4.20-5.40); RED CELL DISTRIBUTION WIDTH 16.3 % (12.0-15.0); WHITE BLOOD COUNT 7.1 x10^3/uL (4.8-10.8)
[2021-09-10 12:54] LABS: ESTIMATED AVERAGE GLUCOSE 148 mg/dL (70-100); HEMOGLOBIN A1c% 6.8 % (4.27-6.07)
[2021-09-10 12:58] LABS: ALBUMIN 4.2 g/dL (3.2-5.5); ALBUMIN/GLOBULIN RATIO 1.3 (1.0-2.2); ALKALINE PHOSPHATASE 48 IU/L (42-121); ALT ALANINE AMINOTRANSFERASE 17 IU/L (10-60); AST ASPARTATE AMINOTRANSFERASE 18 IU/L (10-42); BILIRUBIN,TOTAL 0.6 mg/dL (0.2-1.0); BUN - BLOOD UREA NITROGEN 11 mg/dL (6-20); CALCIUM 9.4 mg/dL (8.5-10.3); CARBON DIOXIDE - CO2 29 mmol/L (21-32); CHLORIDE 101 mmol/L (101-111); CHOL/HDL RATIO 2.2 (<4.4); CHOLESTEROL 166 mg/dL; CREATININE 0.6 mg/dL (0.4-1.0); GFR - MDRD 108 (>89); GLUCOSE 113 mg/dL (70-100); HDL CHOLESTEROL 74 mg/dL; LDL CHOLESTEROL,CALCULATED 67 mg/dL; LDL/HDL RATIO 0.9 (<4.4); POTASSIUM 3.9 mmol/L (3.5-5.0); SODIUM 141 mmol/L (135-145); TOTAL PROTEIN 7.5 g/dL (6.7-8.2); TRIGLYCERIDES 126 mg/dL; VLDL CHOLESTEROL 25 mg/dL
[2021-09-10 13:00] LABS: CREATININE,URINE 90.7 mg/dL; MICROALBUM/CREATININE RATIO,UR 26.5 ug/mg (<30.0); MICROALBUMIN,URINE 2.4 mg/dL (0-300.0)
[2021-09-10 15:57] LABS: THYROID STIMULATING HORMONE 0.49 uIU/mL (0.34-5.60)
== END 2021-09-10 23:59 | disposition home or self-care (01) ==
LOC: LAB.WCP 07:12
PROVIDERS: ATTEND Physician Assistant Medical
DX: E11.9 Type 2 diabetes mellitus without complications (principal); K21.9 Gastro-esophageal reflux disease without esophagitis; D64.9 Anemia, unspecified
CPT/HCPCS: 36415; 80053; 80061; 81599; 82043; 82570; 82728; 83036; 83540; 83550; 83721; 84443; 85025

== ENCOUNTER 2021-11-13 08:22 | Day surgery (SDC) | payer BC ==
[2021-11-13] MEDS ORDERED: LACTATED RINGERS 1,000 ML IV ONE ×2 (08:36→11:55)
[2021-11-13] MEDS ORDERED: LIDOCAINE-MPF 2% 5 ML VIAL ONE (08:47)
[2021-11-13] MEDS ORDERED: PROPOFOL 500 MG/50 ML 500 MG/50 ML VIAL ONE (08:47)
--- NOTE | 2021-11-13 09:28 | ANESTHESIA ---
Pre-Anesthesia VS, & Labs - Diagnosis Gerd, anemia, history of colon polyps - Procedure EGD and colonoscopy Vital Signs: Temp Pulse Resp BP Pulse Ox 37.5 C 83 16 155/102 H 100 11/13/21 08:59 11/13/21 08:59 11/13/21 08:59 11/13/21 08:59 11/13/21 08:59 Height: 5 ft 5 in Weight (kg): 80 kg Body Mass Index: 29.3 BMI Classification: Overweight - NPO >8 hours - Is Patient ?: No - Lab Results Current Lab Results: Laboratory Tests 11/13/21 09:10: POC Whole Bld Glucose 143 H Home Medications and Allergies Home Medications: Ambulatory Orders Atorvastatin [Lipitor] 10 mg PO QPM 11/05/21 Cholecalciferol [Vitamin D3] 25 mcg PO DAILY 11/05/21 Ibuprofen [Motrin] 600 mg PO Q6H PRN 11/05/21 Magnesium 250 mg PO DAILY 11/05/21 Omeprazole 20 mg PO DAILY 11/05/21 hydroCHLOROthiazide [Hydrodiuril] 25 mg PO DAILY 11/05/21 lisinopriL [Lisinopril] 20 mg PO DAILY 01/29/16 metFORMIN [Glucophage] 1,000 mg PO BIDWM 01/29/16 Acetaminophen [Tylenol] 650 mg PO Q6H PRN 12/04/16 Dicyclomine HCl 20 mg PO TID PRN 12/04/16 Docusate Sodium 100 mg PO DAILY 12/04/16 Duloxetine HCl [Cymbalta] 120 mg PO DAILY 12/04/16 Multivitamin [Multivitamins] 1 each PO DAILY 12/04/16 Atorvastatin [Lipitor] 10 mg PO QPM 11/05/21 Cholecalciferol [Vitamin D3] 25 mcg PO DAILY 11/05/21 Ibuprofen [Motrin] 600 mg PO Q6H PRN 11/05/21 Magnesium 250 mg PO DAILY 11/05/21 Omeprazole 20 mg PO DAILY 11/05/21 hydroCHLOROthiazide [Hydrodiuril] 25 mg PO DAILY 11/05/21 Allergies/Adverse Reactions: Allergies Allergy/AdvReac Type Severity Reaction Status Date / Time No Known Drug Allergies Allergy Verified 04/02/21 08:56 Anes History & Medical History - Anesthetic History Anesthesia Complications: reports: No previous complications - Medical History Cardiovascular: reports: Hypertension, High cholesterol Pulmonary: reports: None Gastrointestinal: reports: GERD, Chronic constipation, Diverticulitis, Other Urinary: reports: Kidney stones Neuro: reports: None Musculoskeletal: reports: None Endocrine/Autoimmune: reports: Type 2 diabetes Blood Disorders: reports: Anemia Skin: reports: None Smoking Status: Former smoker (quit 18 years ago) Psychosocial: reports: Delusions, Anxiety History of Cancer?: No - Surgical History General: reports: Appendectomy Eyes Ears Nose Throat (EENT): Gynecologic: reports: section, Tubal ligation Exam General: Alert, Oriented x3, Cooperative, No acute distress Dental: Poor dentition Mouth Openin Fingerbreadth Neck Mobility: Normal Mallampati classification: I Thyromental Distance: 4-6 cm Mental/Cognitive Status: Alert/Oriented X3, Normal for patient Plan Anesthesia Type: General, Total IV Consent for Procedure(s) Verified and Reviewed: Yes Code Status: Attempt Resuscitation ASA classification: 2-Mild systemic disease Is this case an emergency?: No
[2021-11-13] MEDS ORDERED: MIDAZOLAM 2 MG/2 ML VIAL ONE (10:14)
[2021-11-13] MEDS ORDERED: PROPOFOL 200 MG/20 ML VIAL IVP ONE (10:44)
--- NOTE | 2021-11-13 11:16 | ANESTHESIA POST OP EVALUATION ---
Anesthesia Post Eval - Post Anesthesia Eval Vitals: Last Vital Signs Temp 36.6 C 11/13/21 11:10 Pulse 82 11/13/21 11:10 Resp 16 11/13/21 11:10 BP 139/92 H 11/13/21 11:10 Pulse Ox 100 11/13/21 11:10 CV Function Including HR & BP: Stable Pain Control: Satisfactory Nausea & Vomiting: Negative Mental Status: Baseline Respiratory Status: Airway Patent Hydration Status: Satisfactory Anesthesia Complications: None
[2021-11-13 11:28] VITALS: BP 147/90
== END 2021-11-13 08:23 | disposition home or self-care (01) ==
LOC: SDS 08:22
PROVIDERS: ATTEND Surgery
PROC: 0DB28ZX Excision of Middle Esophagus, Via Natural or Artificial Opening Endoscopic, Diagnostic (ICD-10-PCS; 2021-11-13)
PROC: 0DB38ZX Excision of Lower Esophagus, Via Natural or Artificial Opening Endoscopic, Diagnostic (ICD-10-PCS; 2021-11-13)
PROC: 0DBM8ZX Excision of Descending Colon, Via Natural or Artificial Opening Endoscopic, Diagnostic (ICD-10-PCS; 2021-11-13)
PROC: 0DB98ZX Excision of Duodenum, Via Natural or Artificial Opening Endoscopic, Diagnostic (ICD-10-PCS; principal; 2021-11-13 09:30)
PROC: 0DB78ZX Excision of Stomach, Pylorus, Via Natural or Artificial Opening Endoscopic, Diagnostic (ICD-10-PCS; 2021-11-13 09:30)
DX: K21.9 Gastro-esophageal reflux disease without esophagitis (principal); K29.50 Unspecified chronic gastritis without bleeding; D12.4 Benign neoplasm of descending colon; K58.1 Irritable bowel syndrome with constipation; E11.43 Type 2 diabetes mellitus with diabetic autonomic (poly)neuropathy; K31.84 Gastroparesis; K44.9 Diaphragmatic hernia without obstruction or gangrene; K64.8 Other hemorrhoids; K64.4 Residual hemorrhoidal skin tags; K57.31 Diverticulosis of large intestine without perforation or abscess with bleeding; K59.89 Other specified functional intestinal disorders; D64.9 Anemia, unspecified; I10 Essential (primary) hypertension; Z79.84 Long term (current) use of oral hypoglycemic drugs; Z80.0 Family history of malignant neoplasm of digestive organs; Z86.010 Personal history of colon polyps
CPT/HCPCS: 43239; 45380; J7120

== ENCOUNTER 2021-12-12 16:39 | Outpatient (CLI) | payer BC ==
[2021-12-12 17:16] LABS: % IRON SATURATION 3 % (20-50); IRON 17 ug/dL (28-170); TOTAL IRON BINDING CAPACITY 524 ug/dL (250-450); TRANSFERRIN 374 mg/dL (192-382)
== END 2021-12-12 16:40 | disposition home or self-care (01) ==
LOC: LAB 16:39
PROVIDERS: ATTEND Physician Assistant Medical
DX: D64.9 Anemia, unspecified (principal)
CPT/HCPCS: 36415; 82728; 83540; 84466

== ENCOUNTER 2022-01-23 10:13 | Outpatient (CLI) | payer BC ==
[2022-01-23 10:38] LABS: BASOPHILS # (AUTO) 0.2 10^3/uL (0.0-0.1); BASOPHILS % (AUTO) 2.2 %; EOSINOPHILS # (AUTO) 0.5 10^3/uL (0.0-0.7); EOSINOPHILS % (AUTO) 6.2 %; HCT - HEMATOCRIT 35.3 % (37.0-47.0); HGB - HEMOGLOBIN 10.6 g/dL (12.0-16.0); LYMPHOCYTES % (AUTO) 24.9 %; MEAN CORPUSCULAR HEMOGLOBIN 24.5 pg (27.0-31.0); MEAN CORPUSCULAR VOLUME 81.5 fL (81.0-99.0); MEAN PLATELET VOLUME 9.6 fL (7.9-10.8); MONOCYTES # (AUTO) 0.7 10^3/uL (0.0-1.0); MONOCYTES % (AUTO) 8.2 %; NEUTROPHILS # (AUTO) 4.8 10^3/uL (1.5-6.6); NEUTROPHILS % (AUTO) 58.3 %; PLT - PLATELET COUNT 320 10^3/uL (130-450); RED BLOOD COUNT 4.33 10^6/uL (4.20-5.40); RED CELL DISTRIBUTION WIDTH 19.4 % (12.0-15.0); WHITE BLOOD COUNT 8.2 x10^3/uL (4.8-10.8)
[2022-01-23 11:33] LABS: % IRON SATURATION 5 % (20-50); IRON 23 ug/dL (28-170); TOTAL IRON BINDING CAPACITY 434 ug/dL (250-450); TRANSFERRIN 310 mg/dL (192-382)
== END 2022-01-23 10:14 | disposition home or self-care (01) ==
LOC: LAB 10:13
PROVIDERS: ATTEND Physician Assistant Medical
DX: D64.9 Anemia, unspecified (principal)
CPT/HCPCS: 36415; 82728; 83540; 84466; 85025

== ENCOUNTER 2022-02-22 11:03 | Outpatient (CLI) | payer BC ==
[2022-02-22 11:18] LABS: BASOPHILS # (AUTO) 0.1 10^3/uL (0.0-0.1); BASOPHILS % (AUTO) 1.4 %; EOSINOPHILS # (AUTO) 0.7 10^3/uL (0.0-0.7); EOSINOPHILS % (AUTO) 6.4 %; HCT - HEMATOCRIT 36.6 % (37.0-47.0); HGB - HEMOGLOBIN 11.4 g/dL (12.0-16.0); LYMPHOCYTES # (AUTO) 2.1 10^3/uL (1.5-3.5); LYMPHOCYTES % (AUTO) 20.9 %; MEAN CORPUSCULAR HEMOGLOBIN 26.1 pg (27.0-31.0); MEAN CORPUSCULAR HGB CONC 31.1 g/dL (32.0-36.0); MEAN CORPUSCULAR VOLUME 83.9 fL (81.0-99.0); MEAN PLATELET VOLUME 9.7 fL (7.9-10.8); MONOCYTES # (AUTO) 0.7 10^3/uL (0.0-1.0); NEUTROPHILS # (AUTO) 6.6 10^3/uL (1.5-6.6); NEUTROPHILS % (AUTO) 63.8 %; PLT - PLATELET COUNT 272 10^3/uL (130-450); RED BLOOD COUNT 4.36 10^6/uL (4.20-5.40); RED CELL DISTRIBUTION WIDTH 18.8 % (12.0-15.0); WHITE BLOOD COUNT 10.3 x10^3/uL (4.8-10.8)
[2022-02-22 11:40] LABS: % IRON SATURATION 18 % (20-50); IRON 59 ug/dL (28-170); TOTAL IRON BINDING CAPACITY 330 ug/dL (250-450); TRANSFERRIN 236 mg/dL (192-382)
== END 2022-02-22 11:04 | disposition home or self-care (01) ==
LOC: LAB 11:03
PROVIDERS: ATTEND Physician Assistant Medical
DX: D64.9 Anemia, unspecified (principal)
CPT/HCPCS: 36415; 82728; 83540; 84466; 85025

== ENCOUNTER 2022-05-29 13:17 | Outpatient (CLI) | payer BC ==
[2022-05-29 13:34] LABS: BASOPHILS # (AUTO) 0.1 10^3/uL (0.0-0.1); BASOPHILS % (AUTO) 1.3 %; EOSINOPHILS # (AUTO) 0.5 10^3/uL (0.0-0.7); EOSINOPHILS % (AUTO) 4.2 %; HCT - HEMATOCRIT 41.1 % (37.0-47.0); LYMPHOCYTES # (AUTO) 2.2 10^3/uL (1.5-3.5); LYMPHOCYTES % (AUTO) 20.1 %; MEAN CORPUSCULAR HEMOGLOBIN 29.5 pg (27.0-31.0); MEAN CORPUSCULAR HGB CONC 34.1 g/dL (32.0-36.0); MEAN CORPUSCULAR VOLUME 86.7 fL (81.0-99.0); MEAN PLATELET VOLUME 9.7 fL (7.9-10.8); MONOCYTES # (AUTO) 0.9 10^3/uL (0.0-1.0); NEUTROPHILS # (AUTO) 7.1 10^3/uL (1.5-6.6); NEUTROPHILS % (AUTO) 66.1 %; PLT - PLATELET COUNT 284 10^3/uL (130-450); RED BLOOD COUNT 4.74 10^6/uL (4.20-5.40); RED CELL DISTRIBUTION WIDTH 14.2 % (12.0-15.0); WHITE BLOOD COUNT 10.8 x10^3/uL (4.8-10.8)
[2022-05-29 13:48] LABS: % IRON SATURATION 28 % (20-50); IRON 104 ug/dL (28-170); TOTAL IRON BINDING CAPACITY 372 ug/dL (250-450); TRANSFERRIN 266 mg/dL (192-382)
== END 2022-05-29 13:18 | disposition home or self-care (01) ==
LOC: LAB 13:17
PROVIDERS: ATTEND Physician Assistant Medical
DX: N92.0 Excessive and frequent menstruation with regular cycle (principal)
CPT/HCPCS: 36415; 82728; 83540; 84466; 85025

== ENCOUNTER 2023-03-24 10:39 | Outpatient (CLI) | payer BC ==
[2023-03-24 10:59] LABS: BASOPHILS # (AUTO) 0.2 10^3/uL (0.0-0.1); BASOPHILS % (AUTO) 1.8 %; EOSINOPHILS # (AUTO) 0.5 10^3/uL (0.0-0.7); HCT - HEMATOCRIT 42.3 % (37.0-47.0); HGB - HEMOGLOBIN 13.5 g/dL (12.0-16.0); LYMPHOCYTES # (AUTO) 2.3 10^3/uL (1.5-3.5); LYMPHOCYTES % (AUTO) 25.9 %; MEAN CORPUSCULAR HEMOGLOBIN 28.2 pg (27.0-31.0); MEAN CORPUSCULAR HGB CONC 31.9 g/dL (32.0-36.0); MEAN CORPUSCULAR VOLUME 88.3 fL (81.0-99.0); MEAN PLATELET VOLUME 9.6 fL (7.9-10.8); MONOCYTES # (AUTO) 0.7 10^3/uL (0.0-1.0); MONOCYTES % (AUTO) 7.6 %; NEUTROPHILS # (AUTO) 5.3 10^3/uL (1.5-6.6); NEUTROPHILS % (AUTO) 58.5 %; PLT - PLATELET COUNT 298 10^3/uL (130-450); RED BLOOD COUNT 4.79 10^6/uL (4.20-5.40); RED CELL DISTRIBUTION WIDTH 13.4 % (12.0-15.0)
[2023-03-24 11:18] LABS: ALBUMIN 4.1 g/dL (3.2-5.5); ALBUMIN/GLOBULIN RATIO 1.1 (1.0-2.2); ALKALINE PHOSPHATASE 55 IU/L (42-121); ALT ALANINE AMINOTRANSFERASE 15 IU/L (10-60); AST ASPARTATE AMINOTRANSFERASE 15 IU/L (10-42); BILIRUBIN,TOTAL 0.5 mg/dL (0.2-1.0); BUN - BLOOD UREA NITROGEN 20 mg/dL (6-20); CALCIUM 9.7 mg/dL (8.5-10.3); CARBON DIOXIDE - CO2 29 mmol/L (21-32); CHLORIDE 102 mmol/L (101-111); CHOL/HDL RATIO 3.1 (<4.4); CHOLESTEROL 199 mg/dL; CREATININE 0.7 mg/dL (0.4-1.0); GFR - MDRD 89 (>89); GLUCOSE 150 mg/dL (70-100); HDL CHOLESTEROL 65 mg/dL; LDL CHOLESTEROL,CALCULATED 100 mg/dL; LDL/HDL RATIO 1.5 (<4.4); POTASSIUM 4.3 mmol/L (3.5-5.0); SODIUM 138 mmol/L (135-145); TOTAL PROTEIN 7.7 g/dL (6.7-8.2); TRIGLYCERIDES 171 mg/dL; VLDL CHOLESTEROL 34 mg/dL
[2023-03-24 12:20] LABS: ESTIMATED AVERAGE GLUCOSE 177 mg/dL (70-100); HEMOGLOBIN A1c% 7.8 % (4.27-6.07)
[2023-03-24 14:01] LABS: THYROID STIMULATING HORMONE 1.01 uIU/mL (0.34-5.60)
== END 2023-03-24 10:40 | disposition home or self-care (01) ==
LOC: LAB 10:39
PROVIDERS: ATTEND Physician Assistant Medical
DX: Z00.00 Encounter for general adult medical examination without abnormal findings (principal); E11.9 Type 2 diabetes mellitus without complications; E78.5 Hyperlipidemia, unspecified; K21.9 Gastro-esophageal reflux disease without esophagitis
CPT/HCPCS: 36415; 80053; 80061; 83036; 83721; 84443; 85025

== ENCOUNTER 2023-05-13 07:57 | Outpatient (CLI) | payer BC ==
--- NOTE | 2023-05-14 10:43 | Mammography Report ---
BILATERAL DIGITAL SCREENING MAMMOGRAM 3D/2D: 05/13/2023 CLINICAL: Routine screening. Comparison is made to exams dated: 01/29/2021 mammogram, 07/06/2019 mammogram, 12/30/2017 mammogram, 2016 mammogram, and 10/26/2015 mammogram - [facility]. Both breasts are almost entirely fatty (category a/<25% glandular tissue). There is a developing oval equal density asymmetry in the left breast at 6 o'clock posterior depth. No other significant masses, calcifications, or other findings are seen in either breast. IMPRESSION: INCOMPLETE: NEEDS ADDITIONAL IMAGING EVALUATION The developing oval equal density asymmetry in the left breast is indeterminate. Additional views wi th possible ultrasound are recommended. Based on the Tyrer Cuzick model (a risk assessment model) the patients lifetime risk is 5.4% and her 10 year risk is 1.1%. According to the ACR, ACS, and NCCN guidelines, an annual breast MRI exam val g with mammogram is recommended if the patients lifetime risk is 20% or greater. This exam was interpreted at Station ID: [id number]. NOTE: For mammograms, a report in lay terms will be sent to the patient. Approximately 15% of breast malignancies will not be visualized mammographically. In the management of a palpable breast mass, a negative mammogram must not discourage biopsy of a clinically suspicious lesion. Electronically Signed By: Candie castro/flor:05/13/2023 14:38:20 ACR BI-RADS Category 0: Incomplete 3340F PARENCHYMAL PATTERN: (F) - The breast(s) demonstrate(s) diffuse fatty replacement. BI-RADS CATEGORY: (0) - 0 Mammo and [place] [id number] Immediate follow-up LATERALITY: (B)
== END 2023-05-13 07:58 | disposition home or self-care (01) ==
LOC: DI 07:57
DX: Z12.31 Encounter for screening mammogram for malignant neoplasm of breast (principal); R92.8 Other abnormal and inconclusive findings on diagnostic imaging of breast

== ENCOUNTER 2023-05-28 09:38 | Outpatient (CLI) | payer BC ==
--- NOTE | 2023-05-30 16:12 | Mammography Report ---
UNILATERAL LEFT DIGITAL DIAGNOSTIC MAMMOGRAM 3D/2D WITH SPOT COMPRESSION: 05/28/2023 CLINICAL: Patient returns today to evaluate a focal asymmetry in the left breast. Comparison is made to exams dated: 05/13/2023 mammogram, 07/06/2019 mammogram, 01/29/2021 mammogram, 12/30 mammogram, 12/04/2016 mammogram, and 10/26/2015 mammogram - [facility]. There are scattered areas of fibroglandular density in the left breast (category b / 25%-50% glandula r tissue). There is a possible developing oval equal density asymmetry in the left breast at 6 o'clock posterior depth. This is not seen in additional views. No other significant masses or calcifications are seen in the breast. IMPRESSION: BENIGN There is no mammographic evidence of malignancy. The possible developing oval equal density asymmetry in the left breast is consistent with fibrogland ular tissue and is benign. A 1 year screening mammogram is recommended. Exam findings were conveyed to the patient. Based on the Tyrer Cuzick model (a risk assessment model) the patients lifetime risk is 8.1% and her 10 year risk is 1.7%. According to the ACR, ACS, and NCCN guidelines, an annual breast MRI exam val g with mammogram is recommended if the patients lifetime risk is 20% or greater. This exam was interpreted at Station ID: [id number]. NOTE: For mammograms, a report in lay terms will be sent to the patient. Approximately 15% of breast malignancies will not be visualized mammographically. In the management of a palpable breast mass, a negative mammogram must not discourage biopsy of a clinically suspicious lesion. Electronically Signed By: Colby Rubio M.D. slc/:05/28/2023 10:35:25 ACR BI-RADS Category 2: Benign Finding(s) 3342F PARENCHYMAL PATTERN: (A) - The breast(s) demonstrate(s) scattered fibroglandular densities. BI-RADS CATEGORY: (2) - 2 Mammogram [id number] 1 year screening LATERALITY: (B)
== END 2023-05-28 09:39 | disposition home or self-care (01) ==
LOC: DI 09:38
PROVIDERS: ATTEND Physician Assistant Medical
DX: R92.8 Other abnormal and inconclusive findings on diagnostic imaging of breast (principal)

== ENCOUNTER 2023-09-15 07:41 | Outpatient (CLI) | payer BC ==
[2023-09-15 08:19] LABS: CALCIUM 9.8 mg/dL (8.5-10.3); CREATININE 0.7 mg/dL (0.6-1.3); POTASSIUM 3.8 mmol/L (3.5-4.5)
[2023-09-15 10:22] LABS: ESTIMATED AVERAGE GLUCOSE 154 mg/dL (70-100)
== END 2023-09-15 07:42 | disposition home or self-care (01) ==
LOC: LAB 07:41
PROVIDERS: ATTEND Physician Assistant Medical
DX: E11.9 Type 2 diabetes mellitus without complications (principal)
CPT/HCPCS: 36415; 80048; 83036

== ENCOUNTER 2024-03-22 07:37 | Outpatient (CLI) | payer BC ==
[2024-03-22 07:48] LABS: BASOPHILS # (AUTO) 0.2 10^3/uL (0.0-0.1); BASOPHILS % (AUTO) 1.9 %; EOSINOPHILS # (AUTO) 0.6 10^3/uL (0.0-0.7); EOSINOPHILS % (AUTO) 7.5 %; HGB - HEMOGLOBIN 12.8 g/dL (12.0-16.0); LYMPHOCYTES # (AUTO) 1.7 10^3/uL (1.5-3.5); MEAN CORPUSCULAR HEMOGLOBIN 28.9 pg (27.0-31.0); MEAN CORPUSCULAR VOLUME 90.3 fL (81.0-99.0); MEAN PLATELET VOLUME 9.8 fL (7.9-10.8); MONOCYTES # (AUTO) 0.7 10^3/uL (0.0-1.0); MONOCYTES % (AUTO) 8.4 %; NEUTROPHILS # (AUTO) 4.9 10^3/uL (1.5-6.6); NEUTROPHILS % (AUTO) 61.1 %; PLT - PLATELET COUNT 314 10^3/uL (130-450); RED BLOOD COUNT 4.43 10^6/uL (4.20-5.40); RED CELL DISTRIBUTION WIDTH 13.2 % (12.0-15.0); WHITE BLOOD COUNT 8.1 x10^3/uL (4.8-10.8)
[2024-03-22 08:17] LABS: ALBUMIN 4.4 g/dL (3.2-5.5); ALBUMIN/GLOBULIN RATIO 1.8 (1.0-2.2); ALKALINE PHOSPHATASE 44 IU/L (42-121); ALT ALANINE AMINOTRANSFERASE 14 IU/L (10-60); AST ASPARTATE AMINOTRANSFERASE 17 IU/L (10-42); BILIRUBIN,TOTAL 0.4 mg/dL (0.2-1.0); BUN - BLOOD UREA NITROGEN 15 mg/dL (6-20); CALCIUM 9.6 mg/dL (8.5-10.3); CARBON DIOXIDE - CO2 30 mmol/L (21-32); CHLORIDE 97 mmol/L (101-111); CHOL/HDL RATIO 2.6 (<4.4); CHOLESTEROL 166 mg/dL; CREATININE 0.8 mg/dL (0.6-1.3); GFR - MDRD 76 (>89); GLUCOSE 151 mg/dL (74-104); HDL CHOLESTEROL 64 mg/dL; LDL CHOLESTEROL,CALCULATED 74 mg/dL; LDL/HDL RATIO 1.2 (<4.4); POTASSIUM 3.8 mmol/L (3.5-4.5); SODIUM 133 mmol/L (135-145); TOTAL PROTEIN 6.8 g/dL (6.4-8.9); TRIGLYCERIDES 138 mg/dL (48-352); VLDL CHOLESTEROL 28 mg/dL
[2024-03-22 08:26] LABS: THYROID STIMULATING HORMONE 0.84 uIU/mL (0.34-5.60)
[2024-03-22 08:39] LABS: CREATININE,URINE 125.4 mg/dL; MICROALBUM/CREATININE RATIO,UR 7.2 ug/mg (<30.0); MICROALBUMIN,URINE 0.9 mg/dL
[2024-03-22 10:15] LABS: ESTIMATED AVERAGE GLUCOSE 146 mg/dL (70-100); HEMOGLOBIN A1c% 6.7 % (4.27-6.07)
== END 2024-03-22 07:38 | disposition home or self-care (01) ==
LOC: LAB 07:37
PROVIDERS: ATTEND Physician Assistant Medical
DX: Z00.00 Encounter for general adult medical examination without abnormal findings (principal); E78.5 Hyperlipidemia, unspecified; E11.9 Type 2 diabetes mellitus without complications
CPT/HCPCS: 36415; 80053; 80061; 82043; 82570; 83036; 83721; 84443; 85025

== ENCOUNTER 2024-06-14 06:44 | Outpatient (CLI) | payer BC ==
--- NOTE | 2024-06-14 13:24 | Ultrasound Report ---
PROCEDURE: Abdomen Limited INDICATIONS: CHOLELITHIASIS TECHNIQUE: Real-time focused scanning was performed of the abdomen, with image documentation. COMPARISONS: None available at the time of dictation FINDINGS: Liver: Liver is normal in size and homogeneous in echotexture. Liver echotexture appears similar to right kidney. Gallbladder: Positive for gallstones, sludge. Gallbladder wall thickness is top normal at 3.4 mm. No pericholecystic fluid. Gallbladder length 11.1 cm. Biliary ducts: Intrahepatic bile ducts are non-dilated. Extrahepatic bile duct caliber measures 6.0 mm. Normal is 6-7 mm or less in diameter, or 10 mm or less post-cholecystectomy. Pancreas: Visualized portions of the pancreas are sonographically normal. Right kidney: Normal in size and echotexture. Right kidney measures 12.5 cm long. No hydronephrosis or nephrolithiasis. No solid masses. No complex renal cystic lesions which require follow-up. IVC: Intrahepatic inferior vena cava is patent. Miscellaneous: No free abdominal fluid. IMPRESSION: Gallstones and sludge Reviewed by: Maximo Hadry MD on 06/14/2024 1:23 PM PDT Approved by: Maximo Hardy MD on 06/14/2024 1:23 PM PDT Station ID: [id number]
== END 2024-06-14 06:45 | disposition home or self-care (01) ==
LOC: DI 06:44
PROVIDERS: ATTEND Physician Assistant Medical
DX: K80.20 Calculus of gallbladder without cholecystitis without obstruction (principal)

== ENCOUNTER 2025-06-12 08:52 | Inpatient (IN) ==
--- OUTSIDE RECORDS SUMMARY | 2025-06-12 09:28 | EXTERNAL MEDICAL SUMMARY RPT | Continuity of Care Document ---
Author Organization [place] Address [address] [place] [id number] Phone Problems date description facility 2025-03-28 07:14 Type 2 diabetes mellitus withou t complications [email or web address] 2025-03-28 07:14 Hyperlipidemia, unspecified i [facility] 2025-03-28 08:56 Type 2 diabetes mellitus withou t complications [facility] 2025-03-28 08:56 Hyperlipidemia, unspecified i [facility] 2025-03-29 00:04 Type 2 diabetes mellitus withou t complications [facility] 2025-03-29 00:04 Hyperlipidemia, unspecified i [facility] 2025-03-29 12:29 Hyperlipidemia, unspecified i [facility] 2025-04-18 11:19 Unspecified abdominal pain [facility] 2025-04-18 11:19 Personal history of other diseases of the digestive system [facility] 2025-04-18 11:23 Unspecified abdominal pain [facility] 2025-04-18 11:23 Py[facility] 2025-04-18 11:23 Personal history of other diseases of the digestive system [facility] 2025-04-18 11:30 Unspecified abdominal pain [employer] [facility] 2025-04-18 11:30 Personal history of other diseases of the digestive system [facility] 2025-04-18 13:52 Unspecified abdominal pain [facility] 2025-04-18 13:52 [facility] 2025-04-18 13:52 Personal history of other diseases of the digestive system [facility] 2025-04-18 14:19 Unspecified abdominal pain [facility] 2025-04-18 14:19 [facility] 2025-04-18 14:19 Personal history of other diseases of the digestive system [facility] 2025-04-18 14:30 Unspecified abdominal pain [facility] 2025-04-18 14:30 Pyuria [facility] 2025-04-18 14:30 Personal history of other diseases of the digestive system [facility] 2025-04-19 00:05 Unspecified abdominal pain lana [facility] 2025-04-19 00:05 Pyuria [facility] 2025-04-19 00:05 Personal history of other diseases of the digestive system [facility] 2025-04-19 11:48 Unspecified abdominal pain lana [facility] 2025-04-19 11:48 Personal history of other diseases of the digestive system [facility] 2025-04-19 11:52 Unspecified abdominal pain lana [facility] 2025-04-19 11:52 Personal history of other diseases of the digestive system [facility] 2025-04-20 08:57 Unspecified abdominal pain lana [facility] 2025-04-20 08:57 Personal history of other diseases of the digestive system [facility] 2025-04-21 00:02 Unspecified abdominal pain [facility] 2025-04-21 00:02 Personal history of other diseases of the digestive system [facility] 2025-04-25 11:14 Unspecified abdominal pain lana [facility] 2025-05-04 08:25 Gastro-esophageal reflux diseas e without esophagitis [facility] 2025-05-04 08:25 Gastroparesis [facility] 2025-05-04 08:25 Incisional hernia without obstr uction or gangrene [facility] 2025-05-04 08:25 Calculus of gallblad joshua without cholecystitis without obstruction [facility] 2025-05-11 14:02 Gastro-esophageal reflux diseas e without esophagitis [facility] 2025-05-11 14:02 Gastroparesis [facility] 2025-05-11 14:02 Incisional hernia without obstr uction or gangrene [facility] 2025-05-11 14:02 Calculus of gallblad joshua without cholecystitis without obstruction [facility] 2025-05-18 14:18 Encounter for screen ing mammogram for malignant neoplasm of breast [facility] 2025-06-03 09:49 Essential (primary) hypertensio n [facility] 2025-06-03 09:49 Other forms of dyspnea [facility] 2025-06-03 09:49 Other chest pain [facility] Results/Labs test date facility value unit notes Result panel 1 BILIRUBIN,TOTAL 2025-03-28 07:19 [facility] 0.3 mg /dl As of March 2023 testing method has changed, this may include reference ranges. CREATININE 2025-03-28 07:19 [facility] 0.9 mg/dl As of March 2023 testing method has changed, this may include reference ranges. THYROID STIMULATING HORMONE 2025-03-28 07:19 [facility] 0.95 uiu/ml (missing) LDL/HDL RATIO 2025-03-28 07:19 [facility] 1.1 (mis sing) (missing) ALBUMIN/GLOBULIN RATIO 2025-03-28 07:19 [facility] 1.7 (missing) (missing) AST ASPARTATE AMINOTRANSFERASE 2025-03-28 07:19 [facility] 10 iu/l As of March 2023 testing method has changed, this may include reference ranges. ALT ALANINE AMINOTRANSFERASE 2025-03-28 07:19 [facility] 11 iu/l As of March 2023 testing method has changed, this may include reference ranges. TRIGLYCERIDES 2025-03-28 07:19 [facility] 131 mg/d l Social History date description facility
[2025-06-12 10:03] LABS: HCT - HEMATOCRIT 35.7 % (37.0-47.0); HGB - HEMOGLOBIN 11.3 g/dL (12.0-16.0); MEAN PLATELET VOLUME 10.1 fL (7.9-10.8); NRBC ABSOLUTE COUNT (AUTO) 0.00 x10^3/uL; NUCLEATED RED BLOOD CELLS AUTO 0.0 /100WBC; PLT - PLATELET COUNT 325 10^3/uL (130-450); RED CELL DISTRIBUTION WIDTH 15.6 % (12.0-15.0)
--- NOTE | 2025-06-12 10:09 | ED Physician Documentation ---
History of Present Illness Stated complaint Stated Complaint: PX Chief complaint Chief Complaint: UTI History obtained from History obtained from: Patient History of Present Illness Pain level max: 9 Pain level now: 9 Additonal information Additional information: 49-year-old female presents to the emergency department with lower abdominal pain, dysuria and urinary frequency. She had a cholecystectomy 2 days ago. She has not had any measured fevers at home but has felt chilled. No back pain. No neck pain. No vomiting. No diarrhea. She states that she is not having upper abdominal pain, chest pain, shortness of breath. No back pain. Review of Systems Constitutional Reports: Chills Cardiovascular Denies: chest pain or palpitations Respiratory Denies: Cough Gastrointestinal Denies: Nausea or Vomiting Meds/Allgy Home Medications Ambulatory Orders Medication Instructions Recorded Confirmed docusate sodium 100 mg capsule 100 mg PO DAILY 7 06/10/25 multivitamin 1 ea PO DAILY 12/04/1606/10 magnesium 250 mg tablet 250 mg PO DAILY 11/05/2109/22 loratadine 10 mg capsule (Claritin 10 mg PO DAILY 01/2706/10/25 Liqui-Gel) metoclopramide HCl 10 mg tablet See Rx Instructions .R oute 02/28/25 06/10/25 .COMPLEX #270 tabs duloxetine 60 mg capsule,delayed See Rx Instructions . Route 04/21/25 06/10/25 release .COMPLEX #180 caps hydrochlorothiazide 25 mg tablet See Rx Instructions . Route 04/21/25 06/10/25 .COMPLEX #90 tabs lisinopril 20 mg tablet See Rx Instructions .Route 0 04/21/25 06/10/25 .COMPLEX #90 tabs metformin 500 mg tablet See Rx Instructions .Route 0 04/21/25 06/10/25 .COMPLEX #360 tabs metoprolol succinate 25 mg See Rx Instructions .Route 04/21/25 06/10/25 tablet,extended release 24 hr .COMPLEX #90 tabs acetaminophen 325 mg tablet 650 mg (2 x 325 mg) PO Q6H PRN 06/10/25 Pain #120 tabs omeprazole 40 mg capsule,delayed 20 mg (1/2 x 40 mg) P O BID #60 caps 06/10/25 release oxycodone 5 mg tablet 5 mg PO Q4H PRN breakthrough pain 06/10/25 #10 tabs polyethylene glycol 3350 17 17 g PO DAILY #238 grams 0 06/10/25 gram/dose oral powder Allergies Allergies Allergy/AdvReac Type Severity Reaction Status Date / Time No Known Drug Allergies Allergy Verified 06/12/25 09:10 PFSH Active Problems All Active Problems (Updated 06/12/25 @ 14:11 by Carmelo Esquivel DNP) Sepsis (Acute) Acute urinary retention (Acute) Tachycardia (Acute) UTI (urinary tract infection) (Acute) Gastritis determined by endoscopy (Acute) History of menorrhagia (Acute) GARCIA (iron deficiency anemia) (Acute) Pyuria (Acute) Diabetes mellitus type 2, controlled, without complications (Acute) Seasonal allergic rhinitis (Acute) Fatty liver (Acute) Depression (Acute) GERD (gastroesophageal reflux disease) (Acute) Hyperlipidemia (Acute) Hypertension, essential, benign (Acute) IBS (irritable bowel syndrome) (Acute) Gastroparesis (Acute) Medical History Medical History (Updated 06/12/25 @ 14:11 by Carmelo Esquivel DNP) History of nephrolithiasis History of colon polyps Chest pain, exertional Surgical History Surgical History (Updated 06/10/25 @ 14:41 by Myranda San DO) History of incisional hernia repair (~06/10/25) Umbilical; old mesh explanted; repaired primarily (in conjunction with lap marika) History of laparoscopic cholecystectomy (~06/10/25) History of total abdominal hysterectomy (~2021) History of ventral hernia repair with mesh, combo surgery with hysterectomy @ [facility] --> mesh explanted 06/10/2025 History of x2 History of appendectomy History of colonoscopy (~10/2021) TA x1, mild diverticulosis History of esophagogastroduodenoscopy (EGD) (~06/10/25) 2021 (ulcerative gastritis, 1cm HH, GERD); 2024 (gastritis - erythematous/nodular) Social History Social History (Updated 06/10/25 @ 11:11 by Meron Zamora CRNA) Smoking Status: Current every day smoker Number of Years Smoked: 15 How many cigarettes a day do you smoke? (20 cigarettes=1 Pk): 10 Do you dip or chew tobacco?: No Do you vape?: Yes Do you feel safe in your home environment?: Yes History of physical, verbal, emotional, or financial abuse?: No Frequency: Occasional Substance Use: cannabis (any form) Exam Exam Vital Signs: Vital Signs x48h Temp Pulse Resp BP Pulse Ox 06/12/25 13:56 122 H 15 138/89 H 97 06/12/25 12:24 116 H 20 131/89 H 95 06/12/25 10:03 109 H 19 131/88 H 98 06/12/25 09:08 36.7 C 130 H 20 148/108 H 96 Constitutional normal general appearance and no apparent distress HENMT oropharynx normal moist mucous membranes Eyes PERRL Neck/C-Spine visual inspection normal Respiratory breath sounds equal bilaterally, normal respiratory effort and clear to auscultation bilaterally Cardiovascular normal heart rate noted and regular rhythm noted Gastrointestinal abdomen normal to inspection and abdomen soft to palpation Tender to palpation across the lower abdomen. Incisions are clean, dry, intact. No signs of infection. Genitourinary no CVA tenderness Extremities no edema Neurology speech normal Psychiatry mental status grossly normal and oriented x3 Skin skin color normal Results Vitals Vitals: Vital Signs - 24 hr 06/12/25 09:08 06/12/25 10:03 06/12/25 10:14 Temperature 36.7 C Temperature Source Temporal Artery Scan Pulse Rate 130 H 109 H Respiratory Rate 20 19 Blood Pressure 148/108 H 131/88 H O2 Saturation 96 98 O2 Source Room air Room air Pain Intensity 9 3 8 06/12/25 12:02 06/12/25 12:24 06/12/25 13:56 Temperature Temperature Source Pulse Rate 116 H 122 H Respiratory Rate 20 15 Blood Pressure 131/89 H 138/89 H O2 Saturation 95 97 O2 Source Room air Room air Pain Intensity 5 5 0 Oxygen O2 Source Room air EKG (time done) 1248: EKG releavant findings:: EKG personally interpreted by author of this note. Relevant findings are: Rate: Other (111 bpm. Sinus tachycardia. Normal SC interval, normal QRS, normal ST segments. Normal EKG) Labs Labs: Laboratory Tests 06/12/25 06/12/25 09:47 13:59 WBC 14.1 H RBC 4.18 L Hgb 11.3 L Hct 35.7 L MCV 85.4 MCH 27.0 MCHC 31.7 L RDW 15.6 H Plt Count 325 MPV 10.1 Neut # (Auto) 11.8 H Lymph # (Auto) 1.2 L [place] # (Auto) 1.0 Eos # (Auto) 0.0 Baso # (Auto) 0.1 Absolute Nucleated RBC 0.00 Nucleated RBC % 0.0 Sodium 135 Potassium 3.6 Chloride 93 L Carbon Dioxide 29 Anion Gap 13.0 BUN 15 Creatinine 0.7 Estimated GFR (MDRD) 89 Glucose 250 H Lactic Acid 2.0 Calcium 10.0 Total Bilirubin 0.7 AST 94 H ALT 207 H Alkaline Phosphatase 83 Total Protein 7.9 Albumin 4.6 Globulin 3.3 Albumin/Globulin Ratio 1.4 Lipase < 10 L Urine Color LIGHT YELLOW Urine Clarity CLOUDY Urine pH 6.5 Ur Specific [place] 1.010 Urine Protein NEGATIVE Urine Glucose (UA) >=1000 H Urine Ketones NEGATIVE Urine Occult Blood LARGE Urine Nitrite POSITIVE H Urine Bilirubin NEGATIVE Urine Urobilinogen 0.2 (NORMAL) Ur Leukocyte Esterase LARGE H Urine RBC 11-25 H Urine WBC >25 H Urine WBC Clumps PRESENT Ur Squamous Epith Cells MOD Squamous H Urine Bacteria Many H Ur Microscopic Review INDICATED Urine Culture Comments NOT INDICATED Rads (name of study) CT abdomen pelvis: Relevant Findings:: Final report received PD Medical Decision Making ED course Complexity details: reviewed results and d/w patient ED course: 49-year-old female with significant tachycardia, chills at home, lower abdominal pain. Urine is positive for UTI. Given Rocephin, IV fluids, Pyridium and IV Dilaudid. Her CT scan shows a very distended bladder, Mederos catheter was placed and approximately 1500 mL of urine was drained. Heart rate remained elevated, 1 15-1 20s. This is not normal for her. She was given more fluids and Ativan, heart rate remains elevated. Patient does have an elevation in her white blood cell count as well. Blood cultures drawn. Lactate drawn. Will admit the patient for UTI and possible early urosepsis. CT scan does not show any abscess, perforation, etc. Discussed the case with the hospitalist who accepts. This document was made in part using voice recognition software. While efforts are made to proofread this document, sound alike and grammatical errors may occur. Discharge Plan Discharge Patient Disposition: ED Place in Observation Condition: Stable Clinical Impression: UTI (urinary tract infection), Tachycardia, Acute urinary retention Prescriptions: No Action metoclopramide HCl 10 mg tablet See Rx Instructions .ROUTE .COMPLEX Qty: 270 3RF Dose Instruction: Take 1 tablet by mouth three times a day before meals for stomach emptying and nausea Rx Instructions: Take 1 tablet by mouth three times a day before meals for stomach emptying and nausea duloxetine 60 mg capsule,delayed release(DR/EC) See Rx Instructions .ROUTE .COMPLEX Qty: 180 3RF Dose Instruction: TAKE TWO CAPSULES BY MOUTH ONCE DAILY Rx Instructions: TAKE TWO CAPSULES BY MOUTH ONCE DAILY lisinopril 20 mg tablet See Rx Instructions .ROUTE .COMPLEX Qty: 90 3RF Dose Instruction: TAKE ONE TABLET BY MOUTH ONE TIME DAILY Rx Instructions: TAKE ONE TABLET BY MOUTH ONE TIME DAILY metoprolol succinate 25 mg tablet extended release 24 hr See Rx Instructions .ROUTE .COMPLEX Qty: 90 3RF Dose Instruction: TAKE ONE TABLET BY MOUTH ONE TIME DAILY Rx Instructions: TAKE ONE TABLET BY MOUTH ONE TIME DAILY metformin 500 mg tablet See Rx Instructions .ROUTE .COMPLEX Qty: 360 3RF Dose Instruction: TAKE TWO TABLETS BY MOUTH TWICE DAILY with meals Rx Instructions: TAKE TWO TABLETS BY MOUTH TWICE DAILY with meals hydrochlorothiazide 25 mg tablet See Rx Instructions .ROUTE .COMPLEX Qty: 90 3RF Dose Instruction: TAKE ONE TABLET BY MOUTH ONE TIME DAILY Rx Instructions: TAKE ONE TABLET BY MOUTH ONE TIME DAILY multivitamin 1 EACH capsule 1 ea PO DAILY docusate sodium 100 MG capsule 100 mg PO DAILY magnesium 250 MG tablet 250 mg PO DAILY Claritin Liqui-Gel 10 MG capsule 10 mg PO DAILY oxycodone 5 mg tablet 5 mg PO Q4H PRN (Reason: breakthrough pain) Qty: 10 0RF Rx Instructions: Take with food. Do Not drive while taking medication. polyethylene glycol 3350 17 gram/dose powder 17 g PO DAILY Qty: 238 0RF Rx Instructions: use while taking narcotic pain medication acetaminophen 325 MG tablet 650 mg PO Q6H PRN (Reason: Pain) Qty: 120 0RF omeprazole 40 MG capsule,delayed release(DR/EC) 20 mg PO BID Qty: 60 0RF Print Language: Comoran
[2025-06-12 10:11] LABS: GLUCOSE, URINE (UA) >=1000 mg/dL (NEGATIVE); KETONES,URINE (UA) NEGATIVE (NEGATIVE); OCCULT BLOOD,URINE LARGE (NEGATIVE); SQUAMOUS EPITHELIAL CELL,UR MOD Squamous (<= Few); WBC CLUMPS,URINE PRESENT
[2025-06-12 10:14] LABS: ALT ALANINE AMINOTRANSFERASE 207 IU/L (10-60); AST ASPARTATE AMINOTRANSFERASE 94 IU/L (10-42); BUN - BLOOD UREA NITROGEN 15 mg/dL (6-20); CARBON DIOXIDE - CO2 29 mmol/L (21-32); CREATININE 0.7 mg/dL (0.6-1.3); GFR - MDRD 89 (>89)
[2025-06-12] MEDS: SODIUM CHLORIDE 0.9% 1,000 ML IV STA ×2 (10:14→13:23)
[2025-06-12] MEDS: HYDROmorphone 1 MG/ML CARPUJECT IVP STA (10:14)
[2025-06-12] MEDS: PHENAZOPYRIDINE 100 MG TABLET PO STA (10:26)
[2025-06-12] MEDS: cefTRIAXone 1 GM VIAL IVP STA (10:26)
--- NOTE | 2025-06-12 12:13 | CT Report ---
PROCEDURE: CT Abdomen/Pelvis W INDICATIONS: diffuse abd pain s/p marika 2 days ago CONTRAST: 100ml omni 300 TECHNIQUE: After the administration of intravenous contrast, a CT scan of the abdomen and pelvis was performed. Images were recorded and evaluated at appropriate window settings. Reformats: coronal and sagittal. For radiation dose reduction, the following was used: automated exposure control, adjustment of mA and/or kV according to patient size. COMPARISON: 03/21/2025. FINDINGS: Image quality: Diagnostic. Lower chest: Unremarkable. Liver: No solid mass. Gallbladder: Surgically absent. There is a small amount of free fluid at the gallbladder fossa without organized fluid collection. A few foci of free air are seen about this area as well. Biliary tree: No intrahepatic or extrahepatic dilation, accounting for age. Spleen: No splenomegaly. Pancreas: No pancreatic ductal dilation. Adrenals: No adrenal nodule. Kidneys and ureters: Mild hydronephrosis and hydroureter. No renal cystic lesion which requires follow up. No solid mass. Perinephric fluid is seen bilaterally. Stomach, bowel and peritoneum: No gastric or small bowel dilation. No abnormal wall thickening. No pathologic free fluid. Lymph nodes: No central or retroperitoneal adenopathy. Vessels: No infrarenal aortic aneurysm. Patent portal vein. PELVIS Reproductive organs: Unremarkable. Bladder: Markedly distended without abnormal wall thickening. Pelvic lymph nodes: No pelvic adenopathy by size criteria. Bones: No aggressive osseous abnormality. Other: No significant ventral or inguinal hernia. IMPRESSION: Markedly distended bladder with hydroureteronephrosis concerning for bladder outlet obstruction. This is most likely contributing to the patient's abdominal pain. Postsurgical changes at the gallbladder fossa with a small amount of free fluid/edema, within normal limits for postop day 2. Reviewed by: Marcia Fernández MD on 06/12/2025 11:12 AM [facility] Approved by: Marcia Fernández MD on 06/12/2025 11:12 AM [email or web address] Station ID: [id number]
[2025-06-12] MEDS: LORazepam 2 MG/ML VIAL IVP STA (13:23)
--- NOTE | 2025-06-12 14:27 | HISTORY & PHYSICAL EXAMINATION ---
Chief Complaint Chief Complaint Chief Complaint: Dysuria History of Present Illness Admitted From Admitted From:: Home with History Obtained From History obtained from: Interview with the patient and History of Present Illness HPI Comment/Other: 49-year-old female who underwent cholecystectomy 2 days ago. She reported to the ED with lower abdominal pain, dysuria, urinary frequency, constipation, chills but no objective fever In the ER, CT abdomen/pelvis was performed which showed no concern for postop complication but did show bladder outlet obstruction with hydroureteronephrosis. Lab work revealed white blood cell count 14.1, UA concerning for UTI. He patient was tachycardic on presentation at 130. EKG revealed sinus tachycardia. She was given aggressive fluid boluses without resolution of this tachycardia. Hospitalist was contacted for admission for sepsis secondary to UTI Meds/Allgy Home Medications Ambulatory Orders Medication Instructions Recorded Confirmed docusate sodium 100 mg capsule 100 mg PO DAILY 7 06/10/25 multivitamin 1 ea PO DAILY 12/04/1606/10 magnesium 250 mg tablet 250 mg PO DAILY 11/05/2109/22 loratadine 10 mg capsule (Claritin 10 mg PO DAILY 01/2706/10/25 Liqui-Gel) metoclopramide HCl 10 mg tablet See Rx Instructions .R oute 02/28/25 06/10/25 .COMPLEX #270 tabs duloxetine 60 mg capsule,delayed See Rx Instructions . Route 04/21/25 06/10/25 release .COMPLEX #180 caps hydrochlorothiazide 25 mg tablet See Rx Instructions . Route 04/21/25 06/10/25 .COMPLEX #90 tabs lisinopril 20 mg tablet See Rx Instructions .Route 0 04/21/25 06/10/25 .COMPLEX #90 tabs metformin 500 mg tablet See Rx Instructions .Route 0 04/21/25 06/10/25 .COMPLEX #360 tabs metoprolol succinate 25 mg See Rx Instructions .Route 04/21/25 06/10/25 tablet,extended release 24 hr .COMPLEX #90 tabs acetaminophen 325 mg tablet 650 mg (2 x 325 mg) PO Q6H PRN 06/10/25 Pain #120 tabs omeprazole 40 mg capsule,delayed 20 mg (1/2 x 40 mg) P O BID #60 caps 06/10/25 release oxycodone 5 mg tablet 5 mg PO Q4H PRN breakthrough pain 06/10/25 #10 tabs polyethylene glycol 3350 17 17 g PO DAILY #238 grams 0 06/10/25 gram/dose oral powder Allergies Allergies Allergy/AdvReac Type Severity Reaction Status Date / Time No Known Drug Allergies Allergy Verified 06/12/25 09:10 PFSH Active Problems All Active Problems (Updated 06/12/25 @ 14:11 by Carmelo Esquivel DNP) Sepsis (Acute) Acute urinary retention (Acute) Tachycardia (Acute) UTI (urinary tract infection) (Acute) Gastritis determined by endoscopy (Acute) History of menorrhagia (Acute) GARCIA (iron deficiency anemia) (Acute) Pyuria (Acute) Diabetes mellitus type 2, controlled, without complications (Acute) Seasonal allergic rhinitis (Acute) Fatty liver (Acute) Depression (Acute) GERD (gastroesophageal reflux disease) (Acute) Hyperlipidemia (Acute) Hypertension, essential, benign (Acute) IBS (irritable bowel syndrome) (Acute) Gastroparesis (Acute) Medical History Medical History (Updated 06/12/25 @ 14:11 by Carmelo Esquivel DNP) History of nephrolithiasis History of colon polyps Chest pain, exertional Surgical History Surgical History (Updated 06/10/25 @ 14:41 by Myranda San DO) History of incisional hernia repair (~06/10/25) Umbilical; old mesh explanted; repaired primarily (in conjunction with lap marika) History of laparoscopic cholecystectomy (~06/10/25) History of total abdominal hysterectomy (~2021) History of ventral hernia repair with mesh, combo surgery with hysterectomy @ [facility] --> mesh explanted 06/10/2025 History of x2 History of appendectomy History of colonoscopy (~10/2021) TA x1, mild diverticulosis History of esophagogastroduodenoscopy (EGD) (~06/10/25) 2021 (ulcerative gastritis, 1cm HH, GERD); 2024 (gastritis - erythematous/nodular) Social History Social History (Updated 06/10/25 @ 11:11 by Meron Zamora CRNA) Smoking Status: Current every day smoker Number of Years Smoked: 15 How many cigarettes a day do you smoke? (20 cigarettes=1 Pk): 10 Do you dip or chew tobacco?: No Do you vape?: Yes Do you feel safe in your home environment?: Yes History of physical, verbal, emotional, or financial abuse?: No Frequency: Occasional Substance Use: cannabis (any form) Review of Systems Status of ROS: 10 or more systems reviewed and unremarkable except as noted in history and below Constitutional Reports: Chills Cardiovascular Denies: Irregular heart rate, chest pain, palpitations, edema or shortness of breath with exertion Respiratory Denies: Shortness of breath Gastrointestinal Reports: Abdominal pain and Constipation Genitourinary Reports: Painful urination and Urinary frequency Exam Exam Vital Signs: Vital Signs x48h Temp Pulse Resp BP Pulse Ox 06/12/25 13:56 122 H 15 138/89 H 97 06/12/25 12:24 116 H 20 131/89 H 95 06/12/25 10:03 109 H 19 131/88 H 98 06/12/25 09:08 36.7 C 130 H 20 148/108 H 96 Constitutional Somnolent HENMT normocephalic and head/scalp atraumatic Eyes PERRL Neck/C-Spine visual inspection normal Chest inspection of chest normal Respiratory breath sounds equal bilaterally and normal respiratory effort Cardiovascular Regularly tachycardic rhythm with no murmur Gastrointestinal Laparotomy incisions in good state of healing. Positive bowel tones. Tender to palpation Extremities normal to inspection Neurology GCS calculation - Eye opening: To Voice Verbal response: Oriented Motor response: Obeys Commands [place] Coma Scale total score: 14 Psychiatry oriented x3 Skin skin color normal Conclusion/Plan Problem List (1) Sepsis: Plan: Meet sepsis criteria with elevated heart rate, white blood cell count, suspected urinary source Blood, urine cultures obtained by ER provider She received 2 L IV fluid bolus Antibiotic coverage with Rocephin given likely source Continue Rocephin 1 g daily LR at 100 (2) Acute urinary retention: Plan: CT concerning for bladder outlet obstruction Mederos placed Likely secondary to infection, will trial Mederos removal tomorrow (3) Diabetes mellitus type 2, controlled, without complications: Plan: Managed with metformin at home Last A1c in late February was 6.8 Repeat A1c SSI Plan Admit inpatient med floor Full code Her is her surrogate decision maker Lab Results Lab results reviewed: Yes 06/12/25 09:47 06/12/25 09:47 Diagnostic Imaging Results Diagnostic Imaging Results: positive Final report reviewed EKG Results EKG Interpreted Independently: Yes Core Measures Anticipated LOS I expect patient to be DC'd or transferred within 96 hours.: Yes DVT/VTE - Prophylaxis VTE/DVT Prophylaxis med ordered at admit?: Yes
[2025-06-12] MEDS ORDERED: ONDANSETRON 4 MG/2 ML VIAL IVP PRN (14:59)
[2025-06-12] MEDS ORDERED: SODIUM CHLORIDE FLUSH 0.9% 10 ML SYRINGE IVP PRN (14:59)
--- OUTSIDE RECORDS SUMMARY | 2025-06-12 14:59 | EXTERNAL MEDICAL SUMMARY RPT | Continuity of Care Document ---
Author Organization [facility] [facility] Address [address] [place] [id number] Phone Problems date description facility 2025-03-28 07:14 Type 2 diabetes mellitus withou t [facility] 2025-03-28 07:14 Hyperlipidemia, unspecified i [facility] 2025-03-28 08:56 Type 2 diabetes mellitus withou t complications [facility] 2025-03-28 08:56 Hyperlipidemia, unspecified i [facility] 2025-03-29 00:04 Type 2 diabetes mellitus withou t complications [facility] 2025-03-29 00:04 Hyperlipidemia, unspecified i [facility] 2025-03-29 12:29 Hyperlipidemia, unspecified i [facility] 2025-04-18 11:19 Unspecified abdominal pain [facility] 2025-04-18 11:19 Personal history of other diseases of the digestive system [facility]18 11:23 Unspecified abdominal pain [facility] 2025-04-18 11:23 Pyuria [facility] 2025-04-18 11:23 Personal history of other diseases of the digestive system [facility] 2025-04-18 11:30 Unspecified abdominal pain [facility] 2025-04-18 11:30 Personal history of other diseases of the digestive system [facility] 2025-04-18 13:52 Unspecified abdominal pain [facility] 2025-04-18 13:52 Pyuria [facility] 2025-04-18 13:52 Personal history of other diseases of the digestive system [facility] 2025-04-18 14:19 Unspecified abdominal pain [facility] 2025-04-18 14:19 Pyuria [facility] 2025-04-18 14:19 Personal history of other diseases of the digestive system [facility] 2025-04-18 14:30 Unspecified abdominal pain [facility] 2025-04-18 14:30 Pyuria [facility] 2025-04-18 14:30 Personal history of other diseases of the digestive system [facility] 2025-04-19 00:05 Unspecified abdominal pain [facility] 2025-04-19 00:05 Pyuria [facility] 2025-04-19 00:05 Personal history of other diseases of the digestive system [facility] 2025-04-19 11:48 Unspecified abdominal pain lana [facility] 2025-04-19 11:48 Personal history of other diseases of the digestive system [facility] 2025-04-19 11:52 Unspecified abdominal pain lana [facility] 2025-04-19 11:52 Personal history of other diseases of the digestive system [facility] 2025-04-20 08:57 Unspecified abdominal pain lana [facility] 2025-04-20 08:57 Personal history of other diseases of the digestive system [facility] 2025-04-21 00:02 Unspecified abdominal pain [facility] 2025-04-21 00:02 Personal history of other diseases of the digestive system [facility] 2025-04-25 11:14 Unspecified abdominal pain lana [facility] 2025-05-04 08:25 Gastro-esophageal reflux diseas e without esophagitis [facility] 2025-05-04 08:25 Gastroparesis [facility] 2025-05-04 08:25 Incisional hernia without obstr uction or gangrene [facility] 2025-05-04 08:25 Calculus of gallblad joshua without cholecystitis without obstruction [facility] 2025-05-11 14:02 Gastro-esophageal reflux diseas e without esophagitis [facility] 2025-05-11 14:02 Gastroparesis [facility] 2025-05-11 14:02 Incisional hernia without obstr uction or gangrene [facility] 2025-05-11 14:02 Calculus of gallblad joshua without cholecystitis without obstruction [facility] 2025-05-18 14:18 Encounter for screen ing mammogram for malignant neoplasm of breast [facility] 2025-06-03 09:49 Essential (primary) hypertensio n [facility] 2025-06-03 09:49 Other forms of dyspnea [facility] 2025-06-03 09:49 Other chest pain [facility] Results/Labs test date facility value unit notes Result panel 1 BILIRUBIN,TOTAL 2025-03-28 07:19 [facility] 0.3 mg /dl As of March 2023 testing method has changed, this may include reference ranges. CREATININE 2025-03-28 07:19 [facility] 0.9 mg/dl As of March 2023 testing method has changed, this may include reference ranges. THYROID STIMULATING HORMONE 2025-03-28 07:19 [facility] 0.95 uiu/ml (missing) LDL/HDL RATIO 2025-03-28 07:19 [facility] 1.1 (mis sing) (missing) ALBUMIN/GLOBULIN RATIO 2025-03-28 07:19 [facility] 1.7 (missing) (missing) AST ASPARTATE AMINOTRANSFERASE 2025-03-28 07:19 [facility] 10 iu/l As of March 2023 testing method has changed, this may include reference ranges. ALT ALANINE AMINOTRANSFERASE 2025-03-28 07:19 [facility] 11 iu/l As of March 2023 testing method has changed, this may include reference ranges. TRIGLYCERIDES 2025-03-28 07:19 [facility] 131 mg/d l Social History date description facility
[2025-06-12] MEDS: SODIUM CHLORIDE 0.9% 1,000 ML IV SCH (15:18)
[2025-06-12] MEDS: SODIUM CHLORIDE 0.9% 1,000 ML IV ONE (17:18)
[2025-06-12] MEDS: ONDANSETRON ODT 4 MG TABLET TL PRN (17:24)
[2025-06-12] MEDS: ACETAMINOPHEN 325 MG TABLET PO PRN (18:04)
[2025-06-12] MEDS: SODIUM CHLORIDE FLUSH 0.9% 10 ML SYRINGE IVP SCH (18:04)
[2025-06-12] MEDS: METOPROLOL SUCCINATE 25 MG TABLET PO SCH (18:55)
[2025-06-13 05:15] LABS: HCT - HEMATOCRIT 27.2 % (37.0-47.0); HGB - HEMOGLOBIN 8.7 g/dL (12.0-16.0); MEAN PLATELET VOLUME 10.0 fL (7.9-10.8); NRBC ABSOLUTE COUNT (AUTO) 0.00 x10^3/uL; NUCLEATED RED BLOOD CELLS AUTO 0.0 /100WBC; PLT - PLATELET COUNT 242 10^3/uL (130-450); RED CELL DISTRIBUTION WIDTH 16.2 % (12.0-15.0)
[2025-06-13 05:32] LABS: BUN - BLOOD UREA NITROGEN 7.0 mg/dL (6-20); CARBON DIOXIDE - CO2 29.0 mmol/L (21-32); CREATININE 0.6 mg/dL (0.6-1.3); GFR - MDRD 106.0 (>89)
--- NOTE | 2025-06-13 07:36 | PROVIDER PROGRESS NOTE ---
Subjective Subjective Subjective: Patient feels improved today. She denies any fevers or chills overnight. She has never had urinary retention in the past. Her abdominal pain or suprapubic pain is completely resolved. She states that she drank about nine 32 ounces glasses of water yesterday, and was unable to urinate. She has had no new medications added in the past 1-2 weeks. Diet: Carb-controlled diet DVT: Lovenox subq Dispo: Home on discharge Code: Full code Current Medications Current Medications Current Medications: Current Medications Generic Name Dose Route Start Last Admin Trade Name Freq PRN Reason Stop Dose Admin Acetaminophen 650 mg 06/12/25 14:59 06/13/25 01:37 Acetaminophen 325 Mg Tablet PO 650 mg Q4HR PRN Administration Pain 1 to 4, or Fever Ceftriaxone Sodium 1 gm 06/13/25 09:00 Ceftriaxone 1 Gm Vial IVP DAILY [facility] Enoxaparin Sodium 40 mg 06/13/25 09:00 Enoxaparin 40 Mg/0.4 Ml Syringe SUBQ DAILY [facility] Sodium Chloride 1,000 mls @ 100 mls/hr 06/12/25 15:00 06/13/25 01:37 Normal Saline 0.9% IV 100 mls/hr .Q10H [facility] Administration Insulin Human Lispro 1 - 5 unit 06/13/25 08:00 Insulin Lispro 300 Unit/3 Ml Pen SUBQ 0800,1200,1700,2100 [facility] Protocol Metoprolol Succinate 25 mg 06/12/25 18:45 06/12/25 18:55 Metoprolol Succinate 25 Mg Tablet PO 25 mg DAILY [facility] Administration Ondansetron HCl 4 mg 06/12/25 14:59 06/12/25 17:24 Ondansetron Odt 4 Mg Tablet TL 4 mg Q6HR PRN Administration Nausea / Vomiting Ondansetron HCl 4 mg 06/12/25 14:59 Ondansetron 4 Mg/2 Ml Vial IVP Q6HR PRN Nausea / Vomiting Sodium Chloride 10 ml 06/12/25 14:59 Sodium Chloride Flush 0.9% 10 Ml Syringe IVP PRN PRN NEEDED PER PROVIDER ORDERS Sodium Chloride 10 ml 06/12/25 17:00 06/13/25 01:33 Sodium Chloride Flush 0.9% 10 Ml Syringe IVP Not Given 0100,0900,1700 [facility] Objective Vital Signs/Intake & Output Reviewed Vital Signs: Yes Vital Signs: Vital Signs x48h Temp Pulse Resp BP BP Pulse Ox 06/13/25 05:00 98.1 F 91 18 120/78 92 06/12/25 23:41 98.1 F 104 H 18 116/77 93 Intake & Output: Intake & Output 06/10/25 06/11/25 06/12/25 06/13/25 23:59 23:59 23:59 23:59 Intake Total 3000 / 3000 1516 / 1516 Output Total 3675 / 3675 1300 / 1300 Balance -675 / -675 216 / 216 Weight (kg) 71.178 kg Objective General Appearance: positive No acute distress and Alert; negative Anxious Eyes Bilateral: positive Normal inspection, PERRL and EOMI ENT: positive ENT inspection nml, Pharynx nml and No signs of dehydration Neck: positive Nml inspection, Thyroid nml and No JVD Respiratory: positive Chest non-tender, No respiratory distress and Breath sounds nml; negative Wheezes, Rales or Rhonchi Cardiovascular: positive Regular rate & rhythm, No murmur and No gallop; negative Tachycardia or Systolic murmur Abdomen: positive Non-tender, No organomegaly, No distention and Other (Surgical site scar is clear, dry, intact. No fluctuance, no active bleeding noted.); negative Guarding or Splenomegaly Back: positive Nml inspection; negative CVA tenderness (R) or CVA tenderness (L) Skin: positive Color nml, No rash, Warm and Dry Extremities: positive Non-tender, Full ROM, Nml appearance and No pedal edema Neurologic/Psychiatric: positive Oriented x3, Motor nml and Mood/affect nml Lab Results 06/13/25 04:23 06/13/25 04:23 Other Labs: Lab Results x24hrs 06/13/25 06/13/25 06/12/25 Range/Units 07:27 04:23 21:56 WBC 10.2 (4.8-10.8) x10^3/uL RBC 3.11 L (4.20-5.40) 10^6/uL Hgb 8.7 L (12.0-16.0) g/dL Hct 27.2 L (37.0-47.0) % MCV 87.5 (81.0-99.0) fL MCH 28.0 (27.0-31.0) pg MCHC 32.0 (32.0-36.0) g/dL RDW 16.2 H (12.0-15.0) % Plt Count 242 (130-450) 10^3/uL MPV 10.0 (7.9-10.8) fL Neut # (Auto) 7.5 H (1.5-6.6) 10^3/uL Lymph # (Auto) 1.2 L (1.5-3.5) 10^3/uL [place] # (Auto) 0.9 (0.0-1.0) 10^3/uL Eos # (Auto) 0.5 (0.0-0.7) 10^3/uL Baso # (Auto) 0.1 (0.0-0.1) 10^3/uL Absolute Nucleated RBC 0.00 x10^3/uL Nucleated RBC % 0.0 /100WBC Sodium 140 (135-145) mmol/L Potassium 4.1 (3.5-4.5) mmol/L Chloride 106 (101-111) mmol/L Carbon Dioxide 29 (21-32) mmol/L Anion Gap 5.0 L (6-13) BUN 7 (6-20) mg/dL Creatinine 0.6 (0.6-1.3) mg/dL Estimated GFR (MDRD) 106 (>89) Glucose 182 H (74-104) mg/dL POC Whole Bld Glucose 153 151 (70-100) mg/dL Lactic Acid (0.5-2.2) mmol/L Calcium 8.8 (8.5-10.3) mg/dL Total Bilirubin (0.2-1.0) mg/dL AST (10-42) IU/L ALT (10-60) IU/L Alkaline Phosphatase (42-121) IU/L Total Protein (6.4-8.9) g/dL Albumin (3.2-5.5) g/dL Globulin (2.1-4.2) g/dL Albumin/Globulin Ratio (1.0-2.2) Lipase (11-82) U/L Urine Color Urine Clarity (CLEAR) Urine pH (5.0-7.5) PH Ur Specific [place] (1.002-1.030) Urine Protein (NEGATIVE) mg/dL Urine Glucose (UA) (NEGATIVE) mg/dL Urine Ketones (NEGATIVE) mg/dL Urine Occult Blood (NEGATIVE) Urine Nitrite (NEGATIVE) Urine Bilirubin (NEGATIVE) Urine Urobilinogen (NORMAL) E.U./dL Ur Leukocyte Esterase (NEGATIVE) Urine RBC (0-5) /HPF Urine WBC (0-5) /HPF Urine WBC Clumps Ur Squamous Epith Cells (<= Few) Urine Bacteria (None Seen) /HPF Ur Microscopic Review Urine Culture Comments 06/12/25 06/12/25 Range/Units 13:59 09:47 WBC 14.1 H (4.8-10.8) x10^3/uL RBC 4.18 L (4.20-5.40) 10^6/uL Hgb 11.3 L (12.0-16.0) g/dL Hct 35.7 L (37.0-47.0) % MCV 85.4 (81.0-99.0) fL MCH 27.0 (27.0-31.0) pg MCHC 31.7 L (32.0-36.0) g/dL RDW 15.6 H (12.0-15.0) % Plt Count 325 (130-450) 10^3/uL MPV 10.1 (7.9-10.8) fL Neut # (Auto) 11.8 H (1.5-6.6) 10^3/uL Lymph # (Auto) 1.2 L (1.5-3.5) 10^3/uL [place] # (Auto) 1.0 (0.0-1.0) 10^3/uL Eos # (Auto) 0.0 (0.0-0.7) 10^3/uL Baso # (Auto) 0.1 (0.0-0.1) 10^3/uL Absolute Nucleated RBC 0.00 x10^3/uL Nucleated RBC % 0.0 /100WBC Sodium 135 (135-145) mmol/L Potassium 3.6 (3.5-4.5) mmol/L Chloride 93 L (101-111) mmol/L Carbon Dioxide 29 (21-32) mmol/L Anion Gap 13.0 (6-13) BUN 15 (6-20) mg/dL Creatinine 0.7 (0.6-1.3) mg/dL Estimated GFR (MDRD) 89 (>89) Glucose 250 H (74-104) mg/dL POC Whole Bld Glucose (70-100) mg/dL Lactic Acid 2.0 (0.5-2.2) mmol/L Calcium 10.0 (8.5-10.3) mg/dL Total Bilirubin 0.7 (0.2-1.0) mg/dL AST 94 H (10-42) IU/L ALT 207 H (10-60) IU/L Alkaline Phosphatase 83 (42-121) IU/L Total Protein 7.9 (6.4-8.9) g/dL Albumin 4.6 (3.2-5.5) g/dL Globulin 3.3 (2.1-4.2) g/dL Albumin/Globulin Ratio 1.4 (1.0-2.2) Lipase < 10 L (11-82) U/L Urine Color LIGHT YELLOW Urine Clarity CLOUDY (CLEAR) Urine pH 6.5 (5.0-7.5) PH Ur Specific [place] 1.010 (1.002-1.030) Urine Protein NEGATIVE (NEGATIVE) mg/dL Urine Glucose (UA) >=1000 H (NEGATIVE) mg/dL Urine Ketones NEGATIVE (NEGATIVE) mg/dL Urine Occult Blood LARGE (NEGATIVE) Urine Nitrite POSITIVE H (NEGATIVE) Urine Bilirubin NEGATIVE (NEGATIVE) Urine Urobilinogen 0.2 (NORMAL) (NORMAL) E.U./dL Ur Leukocyte Esterase LARGE H (NEGATIVE) Urine RBC 11-25 H (0-5) /HPF Urine WBC >25 H (0-5) /HPF Urine WBC Clumps PRESENT Ur Squamous Epith Cells MOD Squamous H (<= Few) Urine Bacteria Many H (None Seen) /HPF Ur Microscopic Review INDICATED Urine Culture Comments NOT INDICATED Assessment/Plan Problem List (1) Sepsis: Impression: Patient presented with leukocytosis of 14.1, as well as tachycardia as high as 138. Source is likely genitourinary. UA was contaminated with squamous cells, urine culture would not be accurate, and as such is not sent. Leukocytosis improved this morning to 10.2. Heart rate has been between 80- 90. Continue IV Rocephin. Blood cultures ordered, pending. Continue IV fluid rehydration. If continued improvement, can likely switch to oral antibiotics tomorrow. Qualifiers: Sepsis acute organ dysfunction status: without acute organ dysfunction Sepsis type: sepsis due to unspecified organism Qualified Code(s): A41.9 - Sepsis, unspecified organism (2) Acute GI bleeding: Impression: Patient had a large, black bowel movement. Not on oral iron supplementation. Her hemoglobin has dropped from 11.3 on admission to 8.7. Part of this is likely dilutional as she has been receiving IV fluids. EGD was just performed on 06/10/25 which showed erythematous/nodule gastric mucosa consistent with gastritis. She also had duodenitis. Biopsies were sent, pathology is pending. Last colonoscopy was 11/13/2021; and polyps were removed. She states she gets colonoscopies every 5 years for this reason. At this time, we will continue to trend H&H every 8 hours. Transfuse for Hb less than 7. FOBT ordered. Two large bore IVs ordered, gentle fluid rehydration, and Protonix oral has been switched to IV twice daily. Will switch to a full liquid diet. If patient continues to drop further, will consult general surgery. (3) Acute urinary retention: Impression: Patient presented with suprapubic pain. CT abdomen/pelvis shows markedly distended bladder with hydroureteronephrosis. When Mederos catheter was placed, about 2 L of urine was removed. No new medications since this procedure. She did receive some anesthetic medications during her procedure for a cholecystectomy 3 days ago. This may have triggered this acute urinary retention. Will trial Mederos removal this morning. Continue bladder scans every 6 hours to ensure retention has resolved. (4) Diabetes mellitus type 2, controlled, without complications: Impression: In the outpatient, patient takes metformin. Continue low-dose sliding scale while here. Glucose has been high during her stay here. Her A1c is 6.4. Continue carb-controlled diet. (5) S/P laparoscopic cholecystectomy: Impression: Patient had a elective laparoscopic cholecystectomy for cholelithiasis on 06/10. CT abdomen/pelvis on admission was reviewedpostsurgical changes were noted at the gallbladder fossa with expected amount of free fluid/edema. Surgical sites are clear, dry, and intact. (6) GARCIA (iron deficiency anemia): Impression: EMR review shows patient does have a history of iron deficiency anemia. With IV fluids, her hemoglobin went from 11.3 yesterday to 8.7 today. It appears her baseline has been around 12-13. No obvious source of acute blood loss. Patient has not been taking iron supplements. Iron levels, TIBC, ferritin, iron saturation reveal severe iron deficiency (has had this in the past due to menorrhagia). Ferritin level is pending. Qualifiers: Iron deficiency anemia type: unspecified iron deficiency Qualified Code(s): D50.9 - Iron deficiency anemia, unspecified (7) GERD (gastroesophageal reflux disease): Impression: Continue home Protonix 40 mg twice daily - switched to IV. Qualifiers: Esophagitis presence: esophagitis presence not specified Qualified Code(s): K21.9 - Gastro-esophageal reflux disease without esophagitis (8) Hypertension, essential, benign: Impression: Continue home metoprolol to prevent rebound tachycardia. Hold lisinopril and hydrochlorothiazide currently held as patient is being actively rehydrated. (9) IBS (irritable bowel syndrome): Impression: Patient being followed up outpatient by her primary care provider for irritable bowel syndrome, possible gastroparesis. Continue home Reglan as needed. Qualifiers: Irritable bowel syndrome type: unspecified Qualified Code(s): K58.9 - Irritable bowel syndrome, unspecified
[2025-06-13] MEDS: cefTRIAXone 1 GM VIAL IVP SCH (08:05)
[2025-06-13] MEDS: INSULIN LISPRO 300 UNIT/3 ML PEN SUBQ SCH (08:07)
[2025-06-13] MEDS: ENOXAPARIN 40 MG/0.4 ML SYRINGE SUBQ SCH (08:07)
--- NOTE | 2025-06-13 09:28 | PHARMACY PROGRESS NOTE ---
Best Possible Medication History Admit Date and Time: 06/12/25 [id number] Home Medications Medication Instructions Recorded Confirmed Type docusate sodium 100 mg capsule 100 mg PO DAILY 7 06/13/25 History multivitamin 1 ea PO DAILY 12/04/1606/13 History magnesium 250 mg tablet 250 mg PO DAILY 11/05/21 History loratadine 10 mg capsule (Claritin 10 mg PO DAILY 01/2706/13/25 History Liqui-Gel) metoclopramide HCl 10 mg tablet See Rx Instructions .R oute 02/28/25 06/13/25 Rx .COMPLEX #270 tabs duloxetine 60 mg capsule,delayed See Rx Instructions . Route 04/21/25 06/13/25 Rx release .COMPLEX #180 caps hydrochlorothiazide 25 mg tablet See Rx Instructions . Route 04/21/25 06/13/25 Rx .COMPLEX #90 tabs lisinopril 20 mg tablet See Rx Instructions .Route 0 04/21/25 06/13/25 Rx .COMPLEX #90 tabs metformin 500 mg tablet See Rx Instructions .Route 0 04/21/25 06/13/25 Rx .COMPLEX #360 tabs metoprolol succinate 25 mg See Rx Instructions .Route 04/21/25 06/13/25 Rx tablet,extended release 24 hr .COMPLEX #90 tabs acetaminophen 325 mg tablet 650 mg (2 x 325 mg) PO Q6H PRN 06/10/25 06/13/25 Rx Pain #120 tabs omeprazole 40 mg capsule,delayed 20 mg (1/2 x 40 mg) P O BID #60 caps 06/10/25 06/13/25 Rx release oxycodone 5 mg tablet 5 mg PO Q4H PRN breakthrough pain 06/10/25 06/13/25 Rx #10 tabs polyethylene glycol 3350 17 17 g PO DAILY #238 grams 0 06/10/25 06/13/25 Rx gram/dose oral powder Processed by: Pharmacy Medications reviewed in ED?: No Medication History completed: Yes Patient Interview: Completed Secondary Source(s): Physician records, Pharmacy records, Insurance records and Previous admit records [facility] Statement: As the person ultimately responsible for medication therapy, providers are able to order a medication from an existing home medication list in [facility] via the "Reconcile Routine" prior to Confirmation of that medication by instructional support technician. Such practice is discouraged except when the physician, in their clinical judgment, deems that a medical need exists for a medication without regard to previous use.
[2025-06-13 10:44] LABS: ESTIMATED AVERAGE GLUCOSE 137 mg/dL (70-100); HEMOGLOBIN A1c% 6.4 % (4.27-6.07)
[2025-06-13] MEDS ORDERED: METOCLOPRAMIDE 10 MG TABLET PO PRN (11:00)
[2025-06-13 11:32] LABS: % IRON SATURATION 6.0 % (20-50)
[2025-06-13 15:25] LABS: FECAL OCCULT BLOOD (FIT) POSITIVE (NEGATIVE)
[2025-06-13] MEDS ORDERED: PANTOPRAZOLE 40 MG TABLET PO SCH (16:00)
[2025-06-13 16:37] LABS: HCT - HEMATOCRIT 29.5 % (37.0-47.0); HGB - HEMOGLOBIN 9.0 g/dL (12.0-16.0)
[2025-06-13] MEDS: PANTOPRAZOLE 40 MG VIAL IVP SCH (22:45)
[2025-06-14 00:27] LABS: HCT - HEMATOCRIT 24.8 % (37.0-47.0); HGB - HEMOGLOBIN 7.9 g/dL (12.0-16.0)
[2025-06-14 04:54] LABS: HCT - HEMATOCRIT 26.8 % (37.0-47.0); HGB - HEMOGLOBIN 8.6 g/dL (12.0-16.0); MEAN PLATELET VOLUME 9.9 fL (7.9-10.8); NRBC ABSOLUTE COUNT (AUTO) 0.00 x10^3/uL; NUCLEATED RED BLOOD CELLS AUTO 0.0 /100WBC; PLT - PLATELET COUNT 259 10^3/uL (130-450); RED CELL DISTRIBUTION WIDTH 15.9 % (12.0-15.0)
[2025-06-14 05:16] LABS: BUN - BLOOD UREA NITROGEN 4.0 mg/dL (6-20); CARBON DIOXIDE - CO2 29.0 mmol/L (21-32); CREATININE 0.6 mg/dL (0.6-1.3); GFR - MDRD 106.0 (>89)
[2025-06-14 08:08] LABS: HCT - HEMATOCRIT 27.1 % (37.0-47.0); HGB - HEMOGLOBIN 8.4 g/dL (12.0-16.0)
[2025-06-14] MEDS: MAGNESIUM OXIDE 400 MG TABLET PO SCH (08:16)
[2025-06-14] MEDS: MULTIVITAMIN TABLET PO SCH (08:17)
--- NOTE | 2025-06-14 12:29 | PROVIDER PROGRESS NOTE ---
Subjective Prog Note Date Prog Note Date: 06/14/25 Prog Note Time: 12:14 Subjective Pt reports feeling: Improved Subjective: Patient feels okay this morning. She is frustrated with her ongoing hospitalization. She endorses one dark tarry stool overnight. Blood counts remain stable. She is able to ambulate around the room. Denies any presyncopal or syncopal symptoms. She hasn't been eating much of her full liquid diet. Mederos catheter remains in place. She was unsuccessful with a TOV on 06/13 this hospilazation. Diet: Carb-controlled diet DVT: Lovenox subq Dispo: Home on discharge, likely 06/15 Code: Full code Current Medications Current Medications Current Medications: Current Medications Generic Name Dose Route Start Last Admin Trade Name Freq PRN Reason Stop Dose Admin Acetaminophen 650 mg 06/12/25 14:59 06/14/25 03:20 Acetaminophen 325 Mg Tablet PO 650 mg Q4HR PRN Administration Pain 1 to 4, or Fever Ceftriaxone Sodium 1 gm 06/13/25 09:00 06/14/25 08:16 Ceftriaxone 1 Gm Vial IVP 1 gm DAILY CORA Administration Duloxetine HCl 120 mg 06/13/25 12:00 06/14/25 08:16 Duloxetine 60 Mg Capsule PO 120 mg DAILY CORA Administration Sodium Chloride 1,000 mls @ 100 mls/hr 06/12/25 15:00 06/14/25 10:07 Normal Saline 0.9% IV 100 mls/hr .Q10H CORA Administration Insulin Human Lispro 1 - 5 unit 06/13/25 08:00 06/14/25 08:15 Insulin Lispro 300 Unit/3 Ml Pen SUBQ 2 unit 0800,1200,1700,2100 CORA Administration Protocol Magnesium Oxide 400 mg 06/14/25 08:00 06/14/25 08:16 Magnesium Oxide 400 Mg Tablet PO 400 mg DAILYWM CORA Administration Metoclopramide HCl 10 mg 06/13/25 11:00 Metoclopramide 10 Mg Tablet PO TID PRN Nausea / Vomiting Metoprolol Succinate 25 mg 06/12/25 18:45 06/14/25 08:16 Metoprolol Succinate 25 Mg Tablet PO 25 mg DAILY CORA Administration Multivitamins 1 tab 06/14/25 08:00 06/14/25 08:17 Multivitamin Tablet PO 1 tab DAILYWM CORA Administration Ondansetron HCl 4 mg 06/12/25 14:59 06/12/25 17:24 Ondansetron Odt 4 Mg Tablet TL 4 mg Q6HR PRN Administration Nausea / Vomiting Ondansetron HCl 4 mg 06/12/25 14:59 Ondansetron 4 Mg/2 Ml Vial IVP Q6HR PRN Nausea / Vomiting Pantoprazole Sodium 40 mg 06/13/25 21:00 06/14/25 08:16 Pantoprazole 40 Mg Vial IVP 40 mg BID CORA Administration Sodium Chloride 10 ml 06/12/25 14:59 Sodium Chloride Flush 0.9% 10 Ml Syringe IVP PRN PRN NEEDED PER PROVIDER ORDERS Sodium Chloride 10 ml 06/12/25 17:00 06/14/25 10:06 Sodium Chloride Flush 0.9% 10 Ml Syringe IVP Not Given 0100,0900,1700 [facility] Objective Vital Signs/Intake & Output Reviewed Vital Signs: Yes Vital Signs: Vital Signs x48h Temp Pulse Resp BP Pulse Ox 06/14/25 11:52 36.7 C 86 20 141/96 H 96 06/14/25 07:58 36.5 C 82 20 139/91 H 96 06/14/25 06:00 36.6 C 87 15 135/92 H 96 Intake & Output: Intake & Output 06/11/25 06/12/25 06/13/25 06/14/25 23:59 23:59 23:59 23:59 Intake Total 3000 / 3000 5143 / 5143 1600 / 1600 Output Total 3675 / 3675 4300 / 4300 1250 / 1250 Balance -675 / -675 843 / 843 350 / 350 Weight (kg) 71.178 kg Objective General Appearance: positive No acute distress and Alert Eyes Bilateral: positive Normal inspection, PERRL and EOMI ENT: positive ENT inspection nml, Pharynx nml and No signs of dehydration Neck: positive Nml inspection, Thyroid nml and No JVD Respiratory: positive Chest non-tender, No respiratory distress and Breath sounds nml; negative Wheezes, Rales or Rhonchi Cardiovascular: positive Regular rate & rhythm, No murmur and No gallop Abdomen: positive Non-tender, No organomegaly, No distention and Other (Surgical sites CDI); negative Guarding or Splenomegaly Back: positive Nml inspection; negative CVA tenderness (R) or CVA tenderness (L) Skin: positive Color nml, No rash, Warm and Dry Extremities: positive Non-tender, Full ROM, Nml appearance and No pedal edema Neurologic/Psychiatric: positive Oriented x3, Motor nml and Mood/affect nml Lab Results 06/14/25 08:02 06/14/25 04:20 Other Labs: Lab Results x24hrs 06/14/25 06/14/25 06/14/25 Range/Units 11:43 08:02 07:39 WBC (4.8-10.8) x10^3/uL RBC (4.20-5.40) 10^6/uL Hgb 8.4 L (12.0-16.0) g/dL Hct 27.1 L (37.0-47.0) % MCV (81.0-99.0) fL MCH (27.0-31.0) pg MCHC (32.0-36.0) g/dL RDW (12.0-15.0) % Plt Count (130-450) 10^3/uL MPV (7.9-10.8) fL Neut # (Auto) (1.5-6.6) 10^3/uL Lymph # (Auto) (1.5-3.5) 10^3/uL [place] # (Auto) (0.0-1.0) 10^3/uL Eos # (Auto) (0.0-0.7) 10^3/uL Baso # (Auto) (0.0-0.1) 10^3/uL Absolute Nucleated RBC x10^3/uL Nucleated RBC % /100WBC Sodium (135-145) mmol/L Potassium (3.5-4.5) mmol/L Chloride (101-111) mmol/L Carbon Dioxide (21-32) mmol/L Anion Gap (6-13) BUN (6-20) mg/dL Creatinine (0.6-1.3) mg/dL Estimated GFR (MDRD) (>89) Glucose (74-104) mg/dL POC Whole Bld Glucose 147 203 (70-100) mg/dL Calcium (8.5-10.3) mg/dL Stl Occult Blood (IFOB) (NEGATIVE) 0906/14/25 06/13/25 Range/Units 04:20 00:21 20:39 WBC 7.6 (4.8-10.8) x10^3/uL RBC 3.07 L (4.20-5.40) 10^6/uL Hgb 8.6 L 7.9 L (12.0-16.0) g/dL Hct 26.8 L 24.8 L (37.0-47.0) % MCV 87.3 (81.0-99.0) fL MCH 28.0 (27.0-31.0) pg MCHC 32.1 (32.0-36.0) g/dL RDW 15.9 H (12.0-15.0) % Plt Count 259 (130-450) 10^3/uL MPV 9.9 (7.9-10.8) fL Neut # (Auto) 4.7 (1.5-6.6) 10^3/uL Lymph # (Auto) 1.4 L (1.5-3.5) 10^3/uL [place] # (Auto) 0.8 (0.0-1.0) 10^3/uL Eos # (Auto) 0.5 (0.0-0.7) 10^3/uL Baso # (Auto) 0.1 (0.0-0.1) 10^3/uL Absolute Nucleated RBC 0.00 x10^3/uL Nucleated RBC % 0.0 /100WBC Sodium 139 (135-145) mmol/L Potassium 4.0 (3.5-4.5) mmol/L Chloride 104 (101-111) mmol/L Carbon Dioxide 29 (21-32) mmol/L Anion Gap 6.0 (6-13) BUN 4 L (6-20) mg/dL Creatinine 0.6 (0.6-1.3) mg/dL Estimated GFR (MDRD) 106 (>89) Glucose 167 H (74-104) mg/dL POC Whole Bld Glucose 163 (70-100) mg/dL Calcium 8.9 (8.5-10.3) mg/dL Stl Occult Blood (IFOB) (NEGATIVE) 06/13/25 06/13/25 Range/Units 16:34 15:00 WBC (4.8-10.8) x10^3/uL RBC (4.20-5.40) 10^6/uL Hgb 9.0 L (12.0-16.0) g/dL Hct 29.5 L (37.0-47.0) % MCV (81.0-99.0) fL MCH (27.0-31.0) pg MCHC (32.0-36.0) g/dL RDW (12.0-15.0) % Plt Count (130-450) 10^3/uL MPV (7.9-10.8) fL Neut # (Auto) (1.5-6.6) 10^3/uL Lymph # (Auto) (1.5-3.5) 10^3/uL [place] # (Auto) (0.0-1.0) 10^3/uL Eos # (Auto) (0.0-0.7) 10^3/uL Baso # (Auto) (0.0-0.1) 10^3/uL Absolute Nucleated RBC x10^3/uL Nucleated RBC % /100WBC Sodium (135-145) mmol/L Potassium (3.5-4.5) mmol/L Chloride (101-111) mmol/L Carbon Dioxide (21-32) mmol/L Anion Gap (6-13) BUN (6-20) mg/dL Creatinine (0.6-1.3) mg/dL Estimated GFR (MDRD) (>89) Glucose (74-104) mg/dL POC Whole Bld Glucose 154 (70-100) mg/dL Calcium (8.5-10.3) mg/dL Stl Occult Blood (IFOB) POSITIVE A (NEGATIVE) Sepsis Event Note (H) Evaluation Current Stage of Sepsis: Resolved Possible source of Sepsis: positive Genitourinary Sepsis Criteria Sepsis Criteria: Recorded Heart Rate greater than 90 bpm and WBC count greater than 12,000 or less than 4000 Assessment/Plan Problem List (1) Sepsis: Impression: RESOLVED Leukocytosis and tachycardia on admission. Suspected secondary to UTI, though notably initial UA was contaminated. No history of recurrent UTI or resistant bacteria. Vital signs now stable and leukocytosis normalized. * 5 days of antibioitcs, can transition CTX to amoxicillin-clav at discharge * Trend WBC, monitor vitals. Qualifiers: Sepsis acute organ dysfunction status: without acute organ dysfunction Sepsis type: sepsis due to unspecified organism Qualified Code(s): A41.9 - Sepsis, unspecified organism (2) Acute GI bleeding: Impression: IMPROVING ISO known gastritis. Has history of heavy NSAID use but not recently. Had large meleniec stool earlier this hospitalization. Had a BM described as black early 06/14 as well. Hgb has remained stable though did drop from admission. Recently scoped 06/10 with gastritis and duodenitis. Pathology pending. * Will advance diet to general * Continue to monitor H/H q8H, transfuse hgb<7 or if develops symptoms/hypotension. * Continue 2 large bore IV * Discontinue fluids * IV protonix bid, transition to oral protonix bid tomorrow * Given recent endoscopic evaluation and stabilization, defer surgery consult at this time. * Will need follow-up with surgery after d/c (3) Acute urinary retention: Impression: ONGOING Post operatively. Had 2-3L on initial presentation retained. TOV on 06/13 was unsuccessful with ongoing retention. Suspect may be related to anaesthetic iso cholecystectomy. * Defer further voiding trial to outpatient setting, discussed with urology (Blaine) who will follow-up outpatient. (4) Diabetes mellitus type 2, controlled, without complications: Impression: STABLE BG running a little high at times in low 200s on sliding scale, low dose. A1c 6.4 * Advancing to carb controlled diet as above. * Continue sliding scale. (5) S/P laparoscopic cholecystectomy: Impression: RESOLVED On 06/10 lap marika performed for symptomatic cholelithiasis. Surgical site remains CDI. (6) GARCIA (iron deficiency anemia): Impression: ONGOING Patient has chart hx of GARCIA. Not on iron at baseline. No obvious other signs of chronic blood loss. Last colo 2021, due 2026. Last EGD as above. TSAT 6% (LOW), Ferritin 87.9 iso acute inflammatory response. * Managing GI bleed as above. * Starting iron supplementation Qualifiers: Iron deficiency anemia type: unspecified iron deficiency Qualified Code(s): D50.9 - Iron deficiency anemia, unspecified (7) GERD (gastroesophageal reflux disease): Impression: STABLE On protonix at home, recently switched to 40mg bid orally. * Continue twice daily IV Protonix as above * Transition to oral twice daily tomorrow Qualifiers: Esophagitis presence: esophagitis presence not specified Qualified Code(s): K21.9 - Gastro-esophageal reflux disease without esophagitis (8) Hypertension, essential, benign: Impression: STABLE BP remains 130s/90s. Home meds lisinopril, HCTZ, toprol. * Continues on home metoprolol * Resume lisinopril tomorrow * Check BMP AM (9) IBS (irritable bowel syndrome): Impression: STABLE On CAN SORTER Reglan. Qualifiers: Irritable bowel syndrome type: unspecified Qualified Code(s): K58.9 - Irritable bowel syndrome, unspecified
--- NOTE | 2025-06-14 18:03 | CONSULTATION NOTE ---
Referring Provider Consult Date: 06/14/25 Chief Complaint Chief Complaint Chief Complaint: urinary retention History of Present Illness Admitted From Admitted From:: er History of Present Illness HPI Comment/Other: Kaylin is a 49-year-old woman with no significant urological history presented to the hospital 2 days after cholecystectomy with Dr. San with abdominal pain and distention and constipation and was found to have bladder outlet obstruction with significantly dilated massively enlarged bladder and bilateral hydroureteronephrosis. A catheter was placed and he had a voiding trial which was failed. Since then she has been much better and is likely being discharged on the [facility] Active Problems All Active Problems (Updated 06/13/25 @ 12:09 by Jared Mayen MD) Acute GI bleeding (Acute) S/P laparoscopic cholecystectomy (Acute) Sepsis (Acute) Acute urinary retention (Acute) Tachycardia (Acute) UTI (urinary tract infection) (Acute) Gastritis determined by endoscopy (Acute) History of menorrhagia (Acute) GARCIA (iron deficiency anemia) (Acute) Pyuria (Acute) Diabetes mellitus type 2, controlled, without complications (Acute) Seasonal allergic rhinitis (Acute) Fatty liver (Acute) Depression (Acute) GERD (gastroesophageal reflux disease) (Acute) Hyperlipidemia (Acute) Hypertension, essential, benign (Acute) IBS (irritable bowel syndrome) (Acute) Gastroparesis (Acute) Medical History Medical History (Updated 06/13/25 @ 12:09 by Jared Mayen MD) History of nephrolithiasis History of colon polyps Chest pain, exertional Surgical History Surgical History (Updated 06/15/25 @ 03:13 by Veronica Avila RN) History of tonsillectomy History of placement of ear tubes History of incisional hernia repair (~06/10/25) Umbilical; old mesh explanted; repaired primarily (in conjunction with lap marika) History of laparoscopic cholecystectomy (~06/10/25) History of total abdominal hysterectomy (~2021) History of ventral hernia repair with mesh, combo surgery with hysterectomy @ [facility] --> mesh explanted 06/10/2025 History of x2 History of appendectomy History of colonoscopy (~10/2021) TA x1, mild diverticulosis History of esophagogastroduodenoscopy (EGD) (~06/10/25) 2021 (ulcerative gastritis, 1cm HH, GERD); 2025 (gastritis - erythematous/nodular) Social History Social History (Updated 06/10/25 @ 11:11 by Meron Zamora CRNA) Smoking Status: Current every day smoker Number of Years Smoked: 15 How many cigarettes a day do you smoke? (20 cigarettes=1 Pk): 10 Do you dip or chew tobacco?: No Do you vape?: Yes Level: Independent Do you feel safe in your home environment?: Yes History of physical, verbal, emotional, or financial abuse?: No Frequency: Occasional Substance Use: cannabis (any form) Meds/Allgy Home Medications Ambulatory Orders Medication Instructions Recorded Confirmed docusate sodium 100 mg capsule 100 mg PO DAILY 7 06/13/25 multivitamin 1 ea PO DAILY 12/04/1606/13 magnesium 250 mg tablet 250 mg PO DAILY 11/05/21 loratadine 10 mg capsule (Claritin 10 mg PO DAILY 01/2706/13/25 Liqui-Gel) metoclopramide HCl 10 mg tablet See Rx Instructions .R oute 02/28/25 06/13/25 .COMPLEX #270 tabs duloxetine 60 mg capsule,delayed See Rx Instructions . Route 04/21/25 06/13/25 release .COMPLEX #180 caps hydrochlorothiazide 25 mg tablet See Rx Instructions . Route 04/21/25 06/13/25 .COMPLEX #90 tabs lisinopril 20 mg tablet See Rx Instructions .Route 0 04/21/25 06/13/25 .COMPLEX #90 tabs metformin 500 mg tablet See Rx Instructions .Route 0 04/21/25 06/13/25 .COMPLEX #360 tabs metoprolol succinate 25 mg See Rx Instructions .Route 04/21/25 06/13/25 tablet,extended release 24 hr .COMPLEX #90 tabs acetaminophen 325 mg tablet 650 mg (2 x 325 mg) PO Q6H PRN 06/10/25 06/13/25 Pain #120 tabs omeprazole 40 mg capsule,delayed 20 mg (1/2 x 40 mg) P O BID #60 caps 06/10/25 06/13/25 release oxycodone 5 mg tablet 5 mg PO Q4H PRN breakthrough pain 06/10/25 06/13/25 #10 tabs polyethylene glycol 3350 17 17 g PO DAILY #238 grams 0 06/10/25 06/13/25 gram/dose oral powder Allergies Allergies Allergy/AdvReac Type Severity Reaction Status Date / Time No Known Drug Allergies Allergy Verified 06/12/25 09:10 Results Lab Results Lab results reviewed: Yes 06/15/25 04:05 06/15/25 04:05 Other Lab Results: Lab Results x24hrs 06/14/25 06/14/25 06/14/25 Range/Units 16:39 11:43 08:02 WBC (4.8-10.8) x10^3/uL RBC (4.20-5.40) 10^6/uL Hgb 8.4 L (12.0-16.0) g/dL Hct 27.1 L (37.0-47.0) % MCV (81.0-99.0) fL MCH (27.0-31.0) pg MCHC (32.0-36.0) g/dL RDW (12.0-15.0) % Plt Count (130-450) 10^3/uL MPV (7.9-10.8) fL Neut # (Auto) (1.5-6.6) 10^3/uL Lymph # (Auto) (1.5-3.5) 10^3/uL [place] # (Auto) (0.0-1.0) 10^3/uL Eos # (Auto) (0.0-0.7) 10^3/uL Baso # (Auto) (0.0-0.1) 10^3/uL Absolute Nucleated RBC x10^3/uL Nucleated RBC % /100WBC Sodium (135-145) mmol/L Potassium (3.5-4.5) mmol/L Chloride (101-111) mmol/L Carbon Dioxide (21-32) mmol/L Anion Gap (6-13) BUN (6-20) mg/dL Creatinine (0.6-1.3) mg/dL Estimated GFR (MDRD) (>89) Glucose (74-104) mg/dL POC Whole Bld Glucose 147 147 (70-100) mg/dL Calcium (8.5-10.3) mg/dL 06/14/25 06/14/25 06/14/25 Range/Units 07:39 04:20 00:21 WBC 7.6 (4.8-10.8) x10^3/uL RBC 3.07 L (4.20-5.40) 10^6/uL Hgb 8.6 L 7.9 L (12.0-16.0) g/dL Hct 26.8 L 24.8 L (37.0-47.0) % MCV 87.3 (81.0-99.0) fL MCH 28.0 (27.0-31.0) pg MCHC 32.1 (32.0-36.0) g/dL RDW 15.9 H (12.0-15.0) % Plt Count 259 (130-450) 10^3/uL MPV 9.9 (7.9-10.8) fL Neut # (Auto) 4.7 (1.5-6.6) 10^3/uL Lymph # (Auto) 1.4 L (1.5-3.5) 10^3/uL [place] # (Auto) 0.8 (0.0-1.0) 10^3/uL Eos # (Auto) 0.5 (0.0-0.7) 10^3/uL Baso # (Auto) 0.1 (0.0-0.1) 10^3/uL Absolute Nucleated RBC 0.00 x10^3/uL Nucleated RBC % 0.0 /100WBC Sodium 139 (135-145) mmol/L Potassium 4.0 (3.5-4.5) mmol/L Chloride 104 (101-111) mmol/L Carbon Dioxide 29 (21-32) mmol/L Anion Gap 6.0 (6-13) BUN 4 L (6-20) mg/dL Creatinine 0.6 (0.6-1.3) mg/dL Estimated GFR (MDRD) 106 (>89) Glucose 167 H (74-104) mg/dL POC Whole Bld Glucose 203 (70-100) mg/dL Calcium 8.9 (8.5-10.3) mg/dL 06/13/25 Range/Units 20:39 WBC (4.8-10.8) x10^3/uL RBC (4.20-5.40) 10^6/uL Hgb (12.0-16.0) g/dL Hct (37.0-47.0) % MCV (81.0-99.0) fL MCH (27.0-31.0) pg MCHC (32.0-36.0) g/dL RDW (12.0-15.0) % Plt Count (130-450) 10^3/uL MPV (7.9-10.8) fL Neut # (Auto) (1.5-6.6) 10^3/uL Lymph # (Auto) (1.5-3.5) 10^3/uL [place] # (Auto) (0.0-1.0) 10^3/uL Eos # (Auto) (0.0-0.7) 10^3/uL Baso # (Auto) (0.0-0.1) 10^3/uL Absolute Nucleated RBC x10^3/uL Nucleated RBC % /100WBC Sodium (135-145) mmol/L Potassium (3.5-4.5) mmol/L Chloride (101-111) mmol/L Carbon Dioxide (21-32) mmol/L Anion Gap (6-13) BUN (6-20) mg/dL Creatinine (0.6-1.3) mg/dL Estimated GFR (MDRD) (>89) Glucose (74-104) mg/dL POC Whole Bld Glucose 163 (70-100) mg/dL Calcium (8.5-10.3) mg/dL Diagnostic Imaging Results Diagnostic Imaging Results: positive Read independently Exam Exam Vital Signs: Vital Signs x48h Temp Pulse Resp BP Pulse Ox 06/14/25 11:52 36.7 C 86 20 141/96 H 96 nad lying in bed CYU in king Conclusion/Plan Problem List (1) Sepsis: Qualifiers: Sepsis acute organ dysfunction status: without acute organ dysfunction Sepsis type: sepsis due to unspecified organism Qualified Code(s): A41.9 - Sepsis, unspecified organism (2) Acute GI bleeding: (3) Acute urinary retention: Plan: Acute urinary retention likely secondary to anesthesia and recent abdominal surgery. I recommend ambulating is much as possible. Ensure no significant constipation. Reduce narcotics as possible. Void trial on day of discharge. If fails then return King catheter and follow- up with me for future management (4) Diabetes mellitus type 2, controlled, without complications: (5) S/P laparoscopic cholecystectomy: (6) GARCIA (iron deficiency anemia): Qualifiers: Iron deficiency anemia type: unspecified iron deficiency Qualified Code(s): D50.9 - Iron deficiency anemia, unspecified (7) GERD (gastroesophageal reflux disease): Qualifiers: Esophagitis presence: esophagitis presence not specified Qualified Code(s): K21.9 - Gastro-esophageal reflux disease without esophagitis (8) Hypertension, essential, benign: (9) IBS (irritable bowel syndrome): Qualifiers: Irritable bowel syndrome type: unspecified Qualified Code(s): K58.9 - Irritable bowel syndrome, unspecified Lab Results Lab results reviewed: Yes 06/15/25 04:05 06/15/25 04:05 Diagnostic Imaging Results Diagnostic Imaging Results: positive Read independently
[2025-06-14] MEDS: FERROUS GLUCONATE 324 MG TABLET PO SCH (18:34)
[2025-06-15 04:41] LABS: HCT - HEMATOCRIT 27.1 % (37.0-47.0); HGB - HEMOGLOBIN 8.7 g/dL (12.0-16.0); MEAN PLATELET VOLUME 9.7 fL (7.9-10.8); NRBC ABSOLUTE COUNT (AUTO) 0.00 x10^3/uL; NUCLEATED RED BLOOD CELLS AUTO 0.0 /100WBC; PLT - PLATELET COUNT 283 10^3/uL (130-450); RED CELL DISTRIBUTION WIDTH 15.6 % (12.0-15.0)
[2025-06-15 05:00] LABS: BUN - BLOOD UREA NITROGEN 5.0 mg/dL (6-20); CARBON DIOXIDE - CO2 30.0 mmol/L (21-32); CREATININE 0.6 mg/dL (0.6-1.3); GFR - MDRD 106.0 (>89)
--- NOTE | 2025-06-15 08:13 | Discharge Summary ---
"Discharge Summary Admit Date: 06/12/25 Discharge Date: 06/15/25 Discharging Provider: Norman Borrero Primary Care Provider: Esperanza Rodriguez Code Status: Attempt Resuscitation DIAGNOSES Discharge Diagnoses with Status of Each Condition: Sepsis, resolved Acute Upper GI Bleed, Resolved Acute urinary retention, resolved T2DM without complication, stable, chronic S/P laparoscopic cholecystectomy GARCIA, acute on chronic, improved GERD, stable, chronic Essential Hypertesnion, stable, chronic IBS, stable chronic HPI History of Present Illness: 49-year-old female who underwent cholecystectomy 2 days ago. She reported to the ED with lower abdominal pain, dysuria, urinary frequency, constipation, chills but no objective fever In the ER, CT abdomen/pelvis was performed which showed no concern for postop complication but did show bladder outlet obstruction with hydroureteronephrosis. Lab work revealed white blood cell count 14.1, UA concerning for UTI. He patient was tachycardic on presentation at 130. EKG revealed sinus tachycardia. She was given aggressive fluid boluses without resolution of this tachycardia. Hospitalist was contacted for admission for sepsis secondary to UTI CONSULTS | PROCEDURES Consultations: Urology, Giancarlo Valladares Procedures: CT abdomen Urinary catheterization and removal HOSPITAL COURSE Hospital Course: Kaylin Villalta was admitted initially with concern for sepsis from urinary source. She was having acute retention following her laparoscopic cholecystectomy 2 days prior. She continued to have retention likely a sequelae of her anesthesia during her surgery. She had greater than 2 L in her bladder on admission and a Mederos catheter was placed. Initial UA was concerning for UTI, however she did not grow any bacteria on culture. She was treated empirically with 3-day course of ceftriaxone. While she was admitted with tachycardia and leukocytosis consistent with sepsis, she did not develop fever or any other systemic symptoms of infection, and responded well to antibiotics. There was empiric trial of void on 06/13, which she failed. She had ongoing retention after this. Mederos catheter was replaced. Urology was consulted, and after his review, he recommended retrial of void on 06/15. This was successful, the patient was discharged without Mederos in place. She was able to void twice prior to discharge. Given that she completed 3-day course of antibiotics, no further antibiotics were prescribed at discharge. She felt well at the time of discharge and was discharged in stable condition. Her hospitalization was complicated by seemingly an acute upper GI bleed and an episode of melena. She had a recent endoscopy which showed gastritis with no particular ulcer. She was treated with IV Protonix. Her hemoglobin remained stable between 8 and 9, having dropped from admission. She has a known history of iron deficiency anemia prior to this and similar was found this admission, transferrin saturation of 6%. She was started on oral iron. She is to follow-up with her primary care doctor in the next 1 to 2 weeks. For follow-up provider: * Needs CBC in 1 to 2 weeks to assess for improving blood counts, hgb 8.7 at discharge * Has follow-up scheduled for general surgery on 06/21 * Consideration for colonoscopy regarding chronic GARCIA, previously attributed to heavy menses * Consider continuing iron supplementation indefinitely ALLERGIES Allergies Allergy/AdvReac Type Severity Reaction Status Date / Time No Known Drug Allergies Allergy Verified 06/12/25 09:10 MEDICATIONS Ambulatory Orders Medication Instructions Recorded Confirmed docusate sodium 100 mg capsule 100 mg PO DAILY 7 06/13/25 multivitamin 1 ea PO DAILY 12/04/1606/13 magnesium 250 mg tablet 250 mg PO DAILY 11/05/21 loratadine 10 mg capsule (Claritin 10 mg PO DAILY 01/2706/13/25 Liqui-Gel) metoclopramide HCl 10 mg tablet See Rx Instructions .R oute 02/28/25 06/13/25 .COMPLEX #270 tabs duloxetine 60 mg capsule,delayed See Rx Instructions . Route 04/21/25 06/13/25 release .COMPLEX #180 caps hydrochlorothiazide 25 mg tablet See Rx Instructions . Route 04/21/25 06/13/25 .COMPLEX #90 tabs lisinopril 20 mg tablet See Rx Instructions .Route 0 04/21/25 06/13/25 .COMPLEX #90 tabs metformin 500 mg tablet See Rx Instructions .Route 0 04/21/25 06/13/25 .COMPLEX #360 tabs metoprolol succinate 25 mg See Rx Instructions .Route 04/21/25 06/13/25 tablet,extended release 24 hr .COMPLEX #90 tabs acetaminophen 325 mg tablet 650 mg (2 x 325 mg) PO Q6H PRN 06/10/25 06/13/25 Pain #120 tabs omeprazole 40 mg capsule,delayed 20 mg (1/2 x 40 mg) P O BID #60 caps 06/10/25 06/13/25 release oxycodone 5 mg tablet 5 mg PO Q4H PRN breakthrough pain 06/10/25 06/13/25 #10 tabs polyethylene glycol 3350 17 17 g PO DAILY #238 grams 0 06/10/25 06/13/25 gram/dose oral powder ferrous gluconate 324 mg (38 mg 324 mg PO DAILYWM #30 tabs 06/15/25 iron) tablet PHYSICAL EXAM AT DISCHARGE Vital Signs: Vital Signs x48h Temp Pulse Resp BP BP Pulse Ox 06/15/25 13:30 36.7 C 82 16 142/95 H 98 06/15/25 11:18 36.7 C 77 16 141/94 H 98 06/15/25 07:45 36.7 C 83 18 140/98 H 95 GEN: No acute distress HEENT: NC/AT, normal appearance of external ears and nose. Hearing baseline. Cardiac: Regular rate and rhythm, no murmurs. Pulm: Lungs CTA bilaterally, no cough, no wheezes Abdomen: Soft, nontender, nondistended. No rebound or guarding Extremities: Moves all 4 extremities equally. Normal tone. Neuro: Face symmetric, CN II through XII intact grossly. Normal gait Psych: Mood euthymic with congruent affect LABS 06/15/25 04:05 06/15/25 04:05 DIAGNOSTIC IMAGING Diagnostic Imaging Results: Final report reviewed SEPSIS Current Stage of Sepsis: Resolved Possible source of Sepsis: Genitourinary Sepsis Criteria: Recorded Heart Rate greater than 90 bpm and WBC count greater than 12,000 or less than 4000 TIME SPENT Time Spent in Discharge (Minutes): 39 Discharge Plan Discharge Patient Disposition: 01 Home, Self Care Condition: Stable Medically Cleared Date:: 06/15/25 Prescriptions: New ferrous gluconate 324 mg (38 mg iron) Tablet 324 mg PO DAILYWM Qty: 30 0RF Continued metoclopramide HCl 10 mg tablet See Rx Instructions .ROUTE .COMPLEX Qty: 270 3RF Dose Instruction: Take 1 tablet by mouth three times a day before meals for stomach emptying and nausea Rx Instructions: Take 1 tablet by mouth three times a day before meals for stomach emptying and nausea duloxetine 60 mg capsule,delayed release(DR/EC) See Rx Instructions .ROUTE .COMPLEX Qty: 180 3RF Dose Instruction: TAKE TWO CAPSULES BY MOUTH ONCE DAILY Rx Instructions: TAKE TWO CAPSULES BY MOUTH ONCE DAILY lisinopril 20 mg tablet See Rx Instructions .ROUTE .COMPLEX Qty: 90 3RF Dose Instruction: TAKE ONE TABLET BY MOUTH ONE TIME DAILY Rx Instructions: TAKE ONE TABLET BY MOUTH ONE TIME DAILY metoprolol succinate 25 mg tablet extended release 24 hr See Rx Instructions .ROUTE .COMPLEX Qty: 90 3RF Dose Instruction: TAKE ONE TABLET BY MOUTH ONE TIME DAILY Rx Instructions: TAKE ONE TABLET BY MOUTH ONE TIME DAILY metformin 500 mg tablet See Rx Instructions .ROUTE .COMPLEX Qty: 360 3RF Dose Instruction: TAKE TWO TABLETS BY MOUTH TWICE DAILY with meals Rx Instructions: TAKE TWO TABLETS BY MOUTH TWICE DAILY with meals hydrochlorothiazide 25 mg tablet See Rx Instructions .ROUTE .COMPLEX Qty: 90 3RF Dose Instruction: TAKE ONE TABLET BY MOUTH ONE TIME DAILY Rx Instructions: TAKE ONE TABLET BY MOUTH ONE TIME DAILY multivitamin 1 EACH capsule 1 ea PO DAILY docusate sodium 100 MG capsule 100 mg PO DAILY magnesium 250 MG tablet 250 mg PO DAILY Claritin Liqui-Gel 10 MG capsule 10 mg PO DAILY oxycodone 5 mg tablet 5 mg PO Q4H PRN (Reason: breakthrough pain) Qty: 10 0RF Rx Instructions: Take with food. Do Not drive while taking medication. polyethylene glycol 3350 17 gram/dose powder 17 g PO DAILY Qty: 238 0RF Rx Instructions: use while taking narcotic pain medication acetaminophen 325 MG tablet 650 mg PO Q6H PRN (Reason: Pain) Qty: 120 0RF omeprazole 40 MG capsule,delayed release(DR/EC) 20 mg PO BID Qty: 60 0RF Diet: Diabetic Health Concerns: You are hospitalized following removal of your gallbladder. You had delayed return of your bladder function and urine retention as a result. Mederos catheter was placed initially, but is removed today and you are able to urinate. You additionally had some blood loss from your stomach and upper intestine. This has resolved. I would continue on the twice daily acid blocking medicine, ondansetron. I have also started you on a iron supplement. Please take this iron supplement every day with your largest meal. If you find that you are having constipation with daily iron you can space it out to every other day. Please follow-up with your primary care doctor within the next 1 to 2 weeks to ensure that your continuing to get better You have follow-up with your surgeon planned for next week as we discussed. Print Language: Thai Patient Instructions: Iron Deficiency Anemia Ch Follow-up Care: Esperanza Rodriguez PA-C [Primary Care Provider, Family Practice] Vitals documented within 30 minutes of discharge?: Yes (See DC VS)"
[2025-06-15 08:36] VITALS: TEMP 98.1
[2025-06-15 11:43] VITALS: O2SAT 98
[2025-06-15 13:45] VITALS: BP 142/95
== END 2025-06-15 13:43 | disposition home or self-care (01) | DRG 872 ==
LOC: ED 08:52 → MS3 14:56
PROVIDERS: ADMIT Nurse Practitioner Acute Care; ATTEND Nurse Practitioner Acute Care
DX: Z90.49 Acquired absence of other specified parts of digestive tract; R33.9 Retention of urine, unspecified; K58.9 Irritable bowel syndrome, unspecified; N32.0 Bladder-neck obstruction; D50.9 Iron deficiency anemia, unspecified; N13.30 Unspecified hydronephrosis; I10 Essential (primary) hypertension; K21.9 Gastro-esophageal reflux disease without esophagitis; A41.9 Sepsis, unspecified organism; F17.210 Nicotine dependence, cigarettes, uncomplicated; Z79.84 Long term (current) use of oral hypoglycemic drugs; E11.9 Type 2 diabetes mellitus without complications; K92.2 Gastrointestinal hemorrhage, unspecified